=== PATIENT | male | born 1965 | race Caucasian/White ===

== ENCOUNTER 2018-03-28 10:37 | Inpatient (IN) | payer OTHER, SELFPAY ==
[2018-03-28] VITALS (16 sets, daily range): BP systolic 129–160; BP diastolic 64–87; PULSE 73–94; RESP 16–18; TEMP 36–37.2; O2SAT 94–99; BMI 28.0
--- NOTE | 2018-03-28 | DI.MRI.S_ITS ---
PROCEDURE: MR CERVICAL SPINE WO CON INDICATIONS: Trauma with cervical spine pain and tenderness TECHNIQUE: Noncontrast sagittal T1 spin echo and T2 fast spin echo, sagittal STIR, foraminal oblique sagittal T2 fast spin echo, and axial gradient echo or T2 fast spin echo through the cervical spine. COMPARISON: [facility], CT, CT CERVICAL SPINE WO CON, 03/28/2018, 10:40. FINDINGS: Image quality: This examination is limited by involuntary motion artifact. Alignment and Curvature: There is mild retrolisthesis seen at C5-C6 and C6-C7. Bone Marrow: Marrow demonstrates normal overall signal. Spinal Cord: Visualized spinal cord has normal size and signal. No cerebellar tonsillar herniation. Paraspinous Soft Tissues: No paravertebral masses. Prevertebral soft tissues are normal in thickness. In this patient with this given history, scrutiny is given to the soft tissues and the paraspinous ligaments. There is mild edema seen involving the soft tissues adjacent to the spinous processes at C6 and C7. C2-C3: The disc height is relatively well-preserved. A mild degree of generalized disc osteophyte complex is seen. Moderate facet joint hypertrophy is seen. Moderate bilateral neural foraminal narrowing is seen. Moderate central canal narrowing is seen. C3-C4: Mild loss of disc height is seen. Loss of disc signal is seen. Moderate generalized disc osteophyte complex is seen. Moderate facet joint hypertrophy is seen. There is moderate to severe bilateral neural foraminal narrowing seen, right worse than left. At least moderate central canal narrowing is seen, as on series 4 image 18. C4-C5: The disc height is relatively well-preserved. Moderate generalized disc osteophyte complex is seen. Moderate facet joint hypertrophy is seen. Moderate to severe bilateral neural foraminal narrowing is seen, left worse than right. Moderate central canal narrowing is seen, with associated mass effect upon the ventral spinal cord. C5-C6: Moderate loss of disc height is seen. Loss of disc signal is seen. Moderate disc osteophyte complex is seen. Uncovertebral joint hypertrophy is seen at this level. Mild to moderate facet hypertrophy is seen. There is moderate to severe bilateral neural foraminal narrowing seen, left worse than right. Moderate to severe central canal narrowing is seen, with mild mass effect upon the ventral spinal cord. C6-C7: Moderate loss of disc height is seen. Loss of disc signal is seen. Moderate to prominent disc osteophyte complex is seen. Uncovertebral joint hypertrophy is seen at this level. There is moderate to severe bilateral neural foraminal narrowing seen. Moderate to severe central canal narrowing is seen, with associated mass effect upon the ventral spinal cord, as on series 4 image 31. C7-T1: The disc height is relatively well-preserved. Moderate generalized disc osteophyte complex is seen. Moderate facet joint hypertrophy is seen. There is at least moderate bilateral neural foraminal narrowing seen. Mild to moderate central canal narrowing is seen. IMPRESSION: Mild soft tissue edema is seen adjacent to the spinous processes at C6 and C7 levels. In this patient with this given history, concern is raised for ligamentous injury. Multiple levels of the underlying degenerative change are seen, which are most prominent at the C6-C7 level. Dictated by: Cuauhtemoc Vasquez M.D. on 03/28/2018 at 15:42 Approved by: Cuauhtemoc Vasquez M.D. on 03/28/2018 at 15:49
--- NOTE | 2018-03-28 | DI.RAD.S_ITS ---
PROCEDURE: XR CHEST 1V INDICATIONS: PAIN FROM FALL TECHNIQUE: One view of the chest was acquired. COMPARISON: None. FINDINGS: Surgical changes and devices: None. Lungs and pleura: No pleural effusions or pneumothorax. Lungs are clear. Mediastinum: Mediastinal contours appear normal. Heart size is normal. Bones and chest wall: No suspicious bony lesions. Overlying soft tissues appear unremarkable. Widening of the right acromioclavicular joint which could be postsurgical or posttraumatic. Old left clavicle fracture which is healed in deformity. IMPRESSION: No acute cardiopulmonary disease process. Dictated by: Marielena Root MD, PhD on 03/28/2018 at 10:57 Approved by: Marielena Root MD, PhD on 03/28/2018 at 10:58
--- NOTE | 2018-03-28 | DI.CT.S_ITS ---
PROCEDURE: CT CERVICAL SPINE WO CON INDICATIONS: PAIN FROM FALL TECHNIQUE: Noncontrast 3 mm thick sections acquired from the skull base to the T4 level. Sagittal and coronal reformats were then constructed. For radiation dose reduction, the following was used: automated exposure control, adjustment of mA and/or kV according to patient size. COMPARISON: None. FINDINGS: Image quality: Excellent. Bones: No fractures or dislocations. Visualized superior ribs are intact. There is moderately severe to severe degenerative disc disease and facet osteoarthritis at C5-6 and C6-7, to the degree that significant spinal and foraminal stenosis is associated. Soft tissues: Prevertebral soft tissues are normal in thickness. No paravertebral hematomas. No apical pneumothoraces. IMPRESSION: Moderately severe to severe degenerative disc disease and facet osteoarthritis over the lower half of the cervical spine but without fracture found or traumatic subluxation identified. Dictated by: Juan Jose Nair M.D. on 03/28/2018 at 11:16 Approved by: Juan Jose Nair M.D. on 03/28/2018 at 11:18
--- NOTE | 2018-03-28 | DI.CT.S_ITS ---
PROCEDURE: CT HEAD/BRAIN WO CON INDICATIONS: PAIN FROM FALL TECHNIQUE: Noncontrast 4.5 mm thick angled axial sections acquired from the foramen magnum to the vertex, with coronal and sagittal reformats. For radiation dose reduction, the following was used: automated exposure control, adjustment of mA and/or kV according to patient size. COMPARISON: None. FINDINGS: Image quality: Excellent. CSF spaces: Basal cisterns are patent. No extra-axial fluid collections. Ventricles are normal in size and shape. Brain: No midline shift. No intracranial masses or hemorrhage. Ann-white matter interface is normal. Atherosclerotic calcifications noted in the V4 segments of the vertebral arteries. Skull and face: Calvarium and visualized facial bones are intact, without suspicious lesions. Right posterior parietal scalp laceration noted. Sinuses: Mucosal thickening noted in the maxillary sinuses bilaterally and the ethmoid air cells bilaterally. The mastoids are clear. IMPRESSION: 1. No acute intracranial disease process. 2. No intracranial hemorrhage. 3. No fracture. 4. Large posterior right parietal scalp laceration. Dictated by: Marielena Root MD, PhD on 03/28/2018 at 11:08 Approved by: Marielena Root MD, PhD on 03/28/2018 at 11:11
--- NOTE | 2018-03-28 | DI.RAD.S_ITS ---
PROCEDURE: XR PELVIS 1-2V INDICATIONS: FALL FROM 14 FEET WITH LACERATIONS AND PAIN THROUGH SPINE TECHNIQUE: 1 view(s) of the pelvis acquired. COMPARISON: None. FINDINGS: Bones: No fractures or dislocations. No suspicious bony lesions. Soft tissues: Visualized bowel gas pattern is normal. No suspicious soft tissue calcifications. IMPRESSION: No fracture. No osseous lesion. If symptoms and/or clinical suspicion for pathology persists, further assessment with repeat radiographs (7-10 days) or advanced imaging (e.g. CT, MRI or bone scan) may be helpful. Dictated by: Marielena Root MD, PhD on 03/28/2018 at 10:56 Approved by: Marielena Root MD, PhD on 03/28/2018 at 10:57
--- NOTE | 2018-03-28 | DI.CT.S_ITS ---
PROCEDURE: CT CHEST ABD PEL W CON INDICATIONS: PAIN FROM FALL TECHNIQUE: After the administration of intravenous contrast, 5 mm thick sections acquired from the lung apices to the symphysis. 2.5 mm thick coronal and sagittal reformats were acquired. Additional 7 mm thick coronal maximum intensity projection (MIP) reformats acquired through the lungs. Optional 10-minute delayed imaging may be performed from the kidneys to the bladder. For radiation dose reduction, the following was used: automated exposure control, adjustment of mA and/or kV according to patient size. COMPARISON: None. FINDINGS: Image quality: Excellent. CHEST: Lungs: No pulmonary contusions or lacerations. No acute airspace opacities. No pneumothorax or hemothorax. Central and peripheral airways appear patent and normal in caliber. Mediastinum: No mediastinal hematomas. Heart size is normal. No pericardial effusion. Thoracic aorta and pulmonary arteries demonstrate normal size and enhancement. No mediastinal or hilar adenopathy. Esophagus is normal in caliber. No hiatal hernia. Chest wall: No rib fractures. No subcutaneous emphysema. No axillary or supraclavicular adenopathy. Thyroid gland appears normal where well visualized. ABDOMEN: Solid organs: Liver is normal in size and enhancement, without lacerations. Gallbladder appears normal. Biliary system is non-dilated. Pancreas enhances normally, without transection. Spleen is normal in size and enhancement, without lacerations. No adrenal hematomas. Both kidneys enhance normally, without hydronephrosis or lacerations. Peritoneum and bowel: No free fluid or air. Unenhanced bowel loops demonstrate normal wall thickness and caliber. Nodes and vessels: No retroperitoneal or mesenteric adenopathy. Aorta and inferior vena cava are normal in size and enhancement. Miscellaneous: No ventral hernias. PELVIS: Genitourinary: Bladder wall thickness is normal. Miscellaneous: No inguinal hernias or adenopathy. Bones: Pelvic ring and hip joints appear intact. No thoracic vertebral compression fractures are found but there is what appears to be an acute 19% anterior height reduction wedge compression fracture of L1, when compared to the level immediately below.. IMPRESSION: No visceral trauma is seen. Please correlate for presence of focal tenderness at the L1 region of the thoracolumbar junction. A 19% anterior height reduction is noted at the L1 vertebral body, presumed to be acute in the setting of significant trauma. Chronicity, however, is more accurately established by MR scanning and could be obtained if clinically warranted. Dictated by: Juan Jose Nair M.D. on 03/28/2018 at 11:23 Approved by: Juan Jose Nair M.D. on 03/28/2018 at 11:26
--- NOTE | 2018-03-28 | DI.MRI.S_ITS ---
PROCEDURE: MR LUMBAR SPINE WO CON INDICATIONS: Compression fracture of lumbar spine TECHNIQUE: Noncontrast sagittal T1 spin echo and T2 fast echo, sagittal STIR, axial T1 and T2 fast spin echo through the lumbar spine. In cases with scoliosis, additional coronal T2 fast spin echo may be performed. COMPARISON: [facility], MR, MR CERVICAL SPINE WO CON, 03/28/2018, 15:36. [facility], CT, CT CHEST ABD PEL W CON, 03/28/2018, 10:40. FINDINGS: Image quality: Diagnostic, with note made of motion artifact. Alignment and Curvature: There is normal bony alignment. Bone Marrow: Marrow is of normal overall signal. There is a band of increased T2-weighted/STIR signal, with decreased T1 weighted signal across the superior/mid aspect of the L1 vertebral body. There is 15-20% loss of height anteriorly at this level. No posterior displacement fracture fragments can be seen. No additional foci of abnormal bone marrow signal are seen. Spinal Cord: Conus medullaris terminates at the L1 level. Visualized cord demonstrates normal signal and size. Paraspinous Soft Tissues: No paravertebral masses. T12-L1: Mild to moderate loss of disc height and disc signal are seen. Mild to moderate disc bulge is seen. There is mild bilateral neural foraminal narrowing seen. Mild to moderate central canal narrowing is seen. L1-L2: The disc height is well-preserved. Loss of disc signal is seen at this level. Mild generalized disc bulge is seen. There is mild to moderate left-sided and minimal right-sided neural foraminal narrowing seen. Mild to moderate central canal narrowing is seen. L2-L3: The disc height and disk signal are well-preserved. Mild to moderate disc bulge is seen, which is eccentric to the right. There is mild to moderate right-sided and mild left-sided neural foraminal narrowing seen. No significant central canal narrowing is seen. L3-L4: [id number] loss of disc height and disc signal can be seen. Along the posterior aspect of the annulus fibrosis, there is a focal annular fissure seen, as on series 2 image 9. Mild to moderate facet hypertrophy is seen. There is at least moderate bilateral neural foraminal narrowing seen. There is a degree of impingement seen upon the exiting nerve roots. Mild to moderate central canal narrowing is seen. L4-L5: The disc height and disk signal are well-preserved. Mild generalized disc bulge is seen. Moderate facet hypertrophy is seen. There is moderate to severe bilateral neural foraminal narrowing seen. There is a degree of impingement seen upon the exiting nerve roots. Mild central canal narrowing is seen. L5-S1: The disc height is well-preserved. Loss of disc signal is seen at this level. Mild to moderate disc bulge is seen. Mild to moderate facet hypertrophy is seen. Along the posterior aspect of the annulus fibrosis, an annular fissure can be seen. There is moderate to severe left-sided neural foraminal narrowing, with associated impingement upon the exiting left L5 nerve root. There is moderate right-sided neural foraminal narrowing seen. Mild central canal narrowing is seen. IMPRESSION: Acute fracture of the L1 vertebral body. Multiple levels of degenerative change are seen, including several sites of nerve root impingement. Annular fissures are seen posteriorly at the L3-L4 and L5-S1 levels. Dictated by: Cuauhtemoc Vasquez M.D. on 03/28/2018 at 15:49 Approved by: Cuauhtemoc Vasquez M.D. on 03/28/2018 at 15:57
--- NOTE | 2018-03-28 10:47 | ED_ITS ---
HPI - Trauma General Chief Complaint: Trauma Stated Complaint: Mob Trauma Time Seen by Provider: 03/28/18 10:46 Source: patient and EMS Mode of arrival: EMS Limitations: no limitations History of Present Illness HPI narrative: Otherwise healthy 53-year-old male brought in by EMS after reports that the patient falling off a 14 ft ladder. EMS reports that the patient did land on his head. Unsure if this was witnessed or not. No reports of loss of consciousness. Patient did arrive in a cervical collar and on a backboard. No interventions or medications given by EMS prior to arrival. Patient was able to move all 4 extremities prior to arrival. Upon arrival patient is complaining of left-sided chest pain and back pain. Also reports of a possible cut to the his head with a bandage over this area. Related Data Home Medications Medication Instructions Recorded Confirmed No Known Home Medications 03/28/18 03/28/18 Allergies Allergy/AdvReac Type Severity Reaction Status Date / Time No Known Drug Allergies Allergy Verified 03/28/18 11:14 Review of Systems Review of Systems All systems reviewed & are unremarkable except as noted in HPI and below Constitutional Denies fatigue, Denies frequent falls and Reports headache(s) Eyes Denies blurry vision and Denies diplopia ENT Ears, Nose, Mouth, and Throat: Denies dizziness, Denies otalgia, Denies facial pain, Reports headache(s), Denies disequilibrium and Denies throat swelling Cardiovascular Reports chest pain (Left-sided chest pain), Denies diaphoresis, Denies syncope, Denies palpitations and Denies dyspnea Respiratory Denies cough and Denies dyspnea Gastrointestinal Gastrointestinal: Denies abdominal pain, Denies nausea and Denies vomiting Musculoskeletal Reports back pain, Denies deformity, Denies numbness and Denies tingling Integumentary/Breasts Comments: Cut the back of his head Neurologic Denies confusion, Denies dizziness, Denies syncope, Denies frequent falls, Reports headache(s), Denies numbness, Denies convulsions, Denies tingling and Denies disequilibrium Psychiatric Denies confusion Endocrine Denies fatigue and Denies palpitations Hematologic/Lymphatic Denies easy bleeding and Denies easy bruising Allergic/Immunologic Denies throat swelling [facility] Medical History Hypertension (Acute) Surgical History No pertinent past surgical history (Acute) Family History: Reviewed 03/28/18 by Kalina Costa MD Social History household members: children Smoking Status: Current every day smoker alcohol intake: former Exam Initial Vital Signs Initial Vital Signs: Vital Signs Pulse Rate 73 03/28/18 11:18 Respiratory Rate 16 03/28/18 11:18 Blood Pressure 149/87 H 03/28/18 11:18 Pulse Oximetry 97 03/28/18 11:18 Const General: cooperative, well developed, well groomed and No acute distress Orientation: alert, awake and oriented x3 HENMT Head: other (4 cm cut to the right parietal aspect of his head) Ears: TM's normal bilaterally Nose: external nose normal Face and sinus: normal facial exam, sinuses nontender and face symmetric Mouth: oral mucosae normal Teeth and gingiva: dentition normal Throat: posterior oropharynx normal Eyes Pupils: PERRL EOM: EOM intact bilaterally Neck Other: In cervical collar Chest Chest: normal inspection of the chest, normal palpation of entire chest wall and No crepitus Resp Effort & Inspection: normal respiratory effort Auscultation: clear to auscultation bilaterally Cardio Rate: regular rate Rhythm: regular rhythm Pulses: radial pulses present GI Inspection: non-distended Palpation: soft, No firm and No tender Other: Normal external male genitalia Back/Spine/Pelvis Back: back tenderness and No crepitance Cervical Spine: collar present Thoracic/Lumbar Spine: No thoraco-lumbar spasm, thoracic spinal tenderness and lumbar spinal tenderness Skin Other: 4 cm laceration to the right parietal aspect of his scalp Neuro General: alert, awake and oriented x3 Cranial Nerves: CN's II-XI intact bilaterally Cognition: normal cognition Speech: speech normal Other: Patient moves all 4 extremities to command Extrem General: normal to inspection and capillary refill normal Right upper extremity: normal to inspection Left upper extremity: normal to inspection Right lower extremity: normal to inspection Left lower extremity: normal to inspection Psych Appearance: grossly normal and well kempt Procedures FAST Exam FAST Exam 1: Fluid in Morison's pouch: No Fluid in Splenorenal Junction: No Fluid around bladder, Transverse view: No Fluid around bladder, Sagittal view: No Fluid in Pericardial Sac: No Gross Wall Motion Abnormality: No Study normal for this patient: Yes Images saved for further review: No Laceration Repair Laceration 1: Site: scalp Side (If applicable): right Size (cm): 4 Description: linear and irregular Depth: simple, single layer Local Anesthetic: lidocaine 1% Amount of anesthesia used (mL): 6 Pre-repair: wound explored and irrigated extensively Skin layer closed with: other (Fanny 10) Scores GCS Eugenio coma scale eye opening: Spontaneous [place] coma scale verbal response: Orientated [place] coma scale motor response: Obey commands Eugenio coma scale total score: 15 Course Orders Ordered: ED Orders 03/28/18 11:51 Consult to General Surgery Routine Diazepam (Valium) 5 mg IV Q6HR PRN PRN Reason: Anxiety Sodium Chloride (Normal Saline 0.9%) 1,000 mls @ 125 mls/hr IV CONT FADUMO Last Admin: 03/28/18 13:29 Dose: 125 mls/hr HYDROMORPHONE STEAM BLOCKER (Dilaudid 6 Mg/30 Ml) 6 mg in 30 mls @ 0 mls/hr IV Q8HR FADUMO Morphine Sulfate (Morphine) 4 mg IV Q4HR PRN PRN Reason: Pain, Mild (1-3) Last Admin: 03/28/18 15:32 Dose: 4 mg Naloxone HCl (Narcan) 0.2 mg IV Q2MIN PRN; Protocol PRN Reason: Opiate Reversal Ondansetron HCl (Zofran) 4 mg IV Q4HR PRN PRN Reason: Nausea And Vomiting Discontinued Medications Diphtheria/Tetanus/Acell Pertussis (Adacel) 0.5 ml IM .ONCE ONE Stop: 03/28/18 13:23 Last Admin: 03/28/18 13:29 Dose: 0.5 ml Hydromorphone HCl (Dilaudid) 1 mg IV NOW ONE Stop: 03/28/18 11:21 Last Admin: 03/28/18 11:27 Dose: 1 mg Hydromorphone HCl (Dilaudid) 1 mg IV NOW ONE Stop: 03/28/18 12:10 Last Admin: 03/28/18 12:10 Dose: 1 mg Hydromorphone HCl (Dilaudid) 1 mg IV NOW ONE Stop: 03/28/18 19:00 Last Admin: 03/28/18 19:41 Dose: Hydromorphone HCl (Dilaudid) 1 mg IV NOW ONE Stop: 03/28/18 19:46 Last Admin: 03/28/18 19:41 Dose: 1 mg Sodium Chloride (Normal Saline 0.9%) 1,000 mls @ 1,000 mls/hr IV BOLUS ONE Stop: 03/28/18 11:46 Last Infusion: 03/28/18 12:35 Dose: 0 mls/hr Infusion: 03/28/18 11:47 Dose: 0 mls/hr Admin: 03/28/18 10:48 Dose: 1,000 mls/hr Morphine Sulfate (Morphine) 4 mg IV NOW ONE Stop: 03/28/18 10:48 Last Admin: 03/28/18 10:48 Dose: 4 mg Morphine Sulfate (Morphine) 4 mg IV NOW ONE Stop: 03/28/18 11:06 Last Admin: 03/28/18 11:04 Dose: 4 mg Morphine Sulfate (Morphine) 4 mg IV Q4HR PRN PRN Reason: Pain, Mild (1-3) Ondansetron HCl (Zofran) 4 mg IV NOW ONE Stop: 03/28/18 10:48 Last Admin: 03/28/18 10:48 Dose: 4 mg Vital Signs - 8 hr 03/28/18 13:00 03/28/18 13:21 03/28/18 13:37 Temperature Pulse Rate 75 85 78 Respiratory Rate 16 Blood Pressure 144/75 H Blood Pressure [Left Arm] 144/75 H 145/81 H Pulse Oximetry 99 97 03/28/18 13:50 03/28/18 16:21 03/28/18 19:33 Temperature 98.0 F 96.8 F L 98.9 F Pulse Rate 76 78 94 H Respiratory Rate 18 Blood Pressure 150/79 H 131/80 142/74 H Blood Pressure [Left Arm] Pulse Oximetry 96 96 94 MDM - Trauma Lab Data Attestation: I reviewed the patient's lab results. Result diagrams: 03/28/18 10:53 03/28/18 10:53 Lab Results 03/28/18 03/28/18 03/28/18 Range/Units 10:53 10:53 10:53 WBC 13.8 H (4.5-11.0) X10^3/uL RBC 5.41 (4.5-5.9) X10^6/uL Hgb 17.0 (13.5-17.5) g/dL Hct 49.6 (41-53) % MCV 91.7 (80-100) fL MCH 31.4 (26-34) PG MCHC 34.2 (30-36) % RDW 13.4 (11.6-14.8) % Plt Count 269 (150-400) X10^3/uL Neut % (Auto) 60.3 (50-75) % Lymph % (Auto) 24.9 L (25-40) % [place] % (Auto) 9.8 (3-14) % Eos % (Auto) 3.8 (2-4) % Baso % (Auto) 1.2 (0-2) % Neut # (Auto) 8300 H (3879-9074) /uL PT 12.4 (10.1-12.7) SECONDS INR 1.1 (0.9-1.3) APTT 25 L (26.4-36.2) SECONDS Sodium 140 (137-145) mmol/L Potassium 3.6 (3.4-5.1) mmol/L Chloride 102 (98-107) mmol/L Carbon Dioxide 28 (22-32) mmol/L BUN 23 H (9-20) mg/dL Creatinine 0.80 (0.66-1.25) mg/dL Estimated GFR > 60.0 (>60) mL/min BUN/Creatinine Ratio 28.8 H (6-22) Glucose 105 H (70-100) mg/dL Calcium 8.8 (8.4-10.2) mg/dL Blood Type Antibody Screen 03/28/18 Range/Units 10:53 WBC (4.5-11.0) X10^3/uL RBC (4.5-5.9) X10^6/uL Hgb (13.5-17.5) g/dL Hct (41-53) % MCV (80-100) fL MCH (26-34) PG MCHC (30-36) % RDW (11.6-14.8) % Plt Count (150-400) X10^3/uL Neut % (Auto) (50-75) % Lymph % (Auto) (25-40) % [place] % (Auto) (3-14) % Eos % (Auto) (2-4) % Baso % (Auto) (0-2) % Neut # (Auto) (5824-4745) /uL PT (10.1-12.7) SECONDS INR (0.9-1.3) APTT (26.4-36.2) SECONDS Sodium (137-145) mmol/L Potassium (3.4-5.1) mmol/L Chloride (98-107) mmol/L Carbon Dioxide (22-32) mmol/L BUN (9-20) mg/dL Creatinine (0.66-1.25) mg/dL Estimated GFR (>60) mL/min BUN/Creatinine Ratio (6-22) Glucose (70-100) mg/dL Calcium (8.4-10.2) mg/dL Blood Type A Negative Antibody Screen Negative Imaging Data Chest x-ray: Radiologist's impression: OCEDURE: XR CHEST 1V INDICATIONS: PAIN FROM FALL TECHNIQUE: One view of the chest was acquired. COMPARISON: None. FINDINGS: Surgical changes and devices: None. Lungs and pleura: No pleural effusions or pneumothorax. Lungs are clear. Mediastinum: Mediastinal contours appear normal. Heart size is normal. Bones and chest wall: No suspicious bony lesions. Overlying soft tissues appear unremarkable. Widening of the right acromioclavicular joint which could be postsurgical or posttraumatic. Old left clavicle fracture which is healed in deformity. IMPRESSION: No acute cardiopulmonary disease process. Dictated by: Marielena Root MD, PhD on 03/28/2018 at 10:57 Approved by: Marielena Root MD, PhD on 03/28/2018 at 10:5 AP pelvis x-ray: Radiologist's impression: [place] [address] XRay Report Signed Patient: Andres Antonio#: [id number] : 1965Acct:[id number] Age/Sex: 53 / MDate of Service: 03/28/18 Loc: ED Accession Number: [id number] Procedure: XR pelvis 1-2V Ordering Provider: Harshil العراقي D.O. PROCEDURE: XR PELVIS 1-2V INDICATIONS: FALL FROM 14 FEET WITH LACERATIONS AND PAIN THROUGH SPINE TECHNIQUE: 1 view(s) of the pelvis acquired. COMPARISON: None. FINDINGS: Bones: No fractures or dislocations. No suspicious bony lesions. Soft tissues: Visualized bowel gas pattern is normal. No suspicious soft tissue calcifications. IMPRESSION: No fracture. No osseous lesion. If symptoms and/or clinical suspicion for pathology persists, further assessment with repeat radiographs (7-10 days) or advanced imaging (e.g. CT, MRI or bone scan) may be helpful. Dictated by: Marielena Root MD, PhD on 03/28/2018 at 10:56 Approved by: Marielena Root MD, PhD on 03/28/2018 at 10:57 CT scan - head: Radiologist's impression: [place] [address] CT Scan Report Signed Patient: Andres Antonio#: [id number] : 1965Acct:[id number] Age/Sex: 53 / MDate of Service: 03/28/18 Loc: ED Accession Number: [id number] Procedure: CT head/brain wo con Ordering Provider: Harshil العراقي D.O. PROCEDURE: CT HEAD/BRAIN WO CON INDICATIONS: PAIN FROM FALL TECHNIQUE: Noncontrast 4.5 mm thick angled axial sections acquired from the foramen magnum to the vertex, with coronal and sagittal reformats. For radiation dose reduction, the following was used: automated exposure control, adjustment of mA and/or kV according to patient size. COMPARISON: None. FINDINGS: Image quality: Excellent. CSF spaces: Basal cisterns are patent. No extra-axial fluid collections. Ventricles are normal in size and shape. Brain: No midline shift. No intracranial masses or hemorrhage. Ann-white matter interface is normal. Atherosclerotic calcifications noted in the V4 segments of the vertebral arteries. Skull and face: Calvarium and visualized facial bones are intact, without suspicious lesions. Right posterior parietal scalp laceration noted. Sinuses: Mucosal thickening noted in the maxillary sinuses bilaterally and the ethmoid air cells bilaterally. The mastoids are clear. IMPRESSION: 1. No acute intracranial disease process. 2. No intracranial hemorrhage. 3. No fracture. 4. Large posterior right parietal scalp laceration. Dictated by: Marielena Root MD, PhD on 03/28/2018 at [address]: Radiologist's impression: [address] [address] [address] Scan Report Signed Patient: Andres Antonio#: [id number] : 1965Acct:[id number] Age/Sex: 53 / MDate of Service: 03/28/18 Loc: ED Accession Number: [id number] Procedure: CT cervical spine wo con Ordering Provider: Harshil العراقي D.O. PROCEDURE: CT CERVICAL SPINE WO CON INDICATIONS: PAIN FROM FALL TECHNIQUE: Noncontrast 3 mm thick sections acquired from the skull base to the T4 level. Sagittal and coronal reformats were then constructed. For radiation dose reduction, the following was used: automated exposure control, adjustment of mA and/or kV according to patient size. COMPARISON: None. FINDINGS: Image quality: Excellent. Bones: No fractures or dislocations. Visualized superior ribs are intact. There is moderately severe to severe degenerative disc disease and facet osteoarthritis at C5-6 and C6-7, to the degree that significant spinal and foraminal stenosis is associated. Soft tissues: Prevertebral soft tissues are normal in thickness. No paravertebral hematomas. No apical pneumothoraces. IMPRESSION: Moderately severe to severe degenerative disc disease and facet osteoarthritis over the lower half of the cervical spine but without fracture found or traumatic subluxation identified. Dictated by: Juan Jose Nair M.D. on 03/28/2018 at 11:16 Approved by: Juan Jose Nair M.D. on 03/28/2018 at 11:18 CT chest and pelvis: Radiologist's impression: PROCEDURE: CT CHEST ABD PEL W CON INDICATIONS: PAIN FROM FALL TECHNIQUE: After the administration of intravenous contrast, 5 mm thick sections acquired from the lung apices to the symphysis. 2.5 mm thick coronal and sagittal reformats were acquired. Additional 7 mm thick coronal maximum intensity projection (MIP) reformats acquired through the lungs. Optional 10-minute delayed imaging may be performed from the kidneys to the bladder. For radiation dose reduction, the following was used: automated exposure control, adjustment of mA and/or kV according to patient size. COMPARISON: None. FINDINGS: Image quality: Excellent. CHEST: Lungs: No pulmonary contusions or lacerations. No acute airspace opacities. No pneumothorax or hemothorax. Central and peripheral airways appear patent and normal in caliber. Mediastinum: No mediastinal hematomas. Heart size is normal. No pericardial effusion. Thoracic aorta and pulmonary arteries demonstrate normal size and enhancement. No mediastinal or hilar adenopathy. Esophagus is normal in caliber. No hiatal hernia. Chest wall: No rib fractures. No subcutaneous emphysema. No axillary or supraclavicular adenopathy. Thyroid gland appears normal where well visualized. ABDOMEN: Solid organs: Liver is normal in size and enhancement, without lacerations. Gallbladder appears normal. Biliary system is non-dilated. Pancreas enhances normally, without transection. Spleen is normal in size and enhancement, without lacerations. No adrenal hematomas. Both kidneys enhance normally, without hydronephrosis or lacerations. Peritoneum and bowel: No free fluid or air. Unenhanced bowel loops demonstrate normal wall thickness and caliber. Nodes and vessels: No retroperitoneal or mesenteric adenopathy. Aorta and inferior vena cava are normal in size and enhancement. Miscellaneous: No ventral hernias. PELVIS: Genitourinary: Bladder wall thickness is normal. Miscellaneous: No inguinal hernias or adenopathy. Bones: Pelvic ring and hip joints appear intact. No thoracic vertebral compression fractures are found but there is what appears to be an acute 19% anterior height reduction wedge compression fracture of L1, when compared to the level immediately below.. IMPRESSION: No visceral trauma is seen. Please correlate for presence of focal tenderness at the L1 region of the thoracolumbar junction. A 19% anterior height reduction is noted at the L1 vertebral body, presumed to be acute in the setting of significant trauma. Chronicity, however, is more accurately established by MR scanning and could be obtained if clinically warranted. Dictated by: Juan Jose Nair M.D. on 03/28/2018 at 11:23 Approved by: Juan Jose Nair M.D. on 03/28/2018 at 11:26 [facility] Narrative Medical decision making narrative: Patient is alert and oriented x3. The scalp laceration was closed as described above. CT scan shows no gross abnormalities. Cervical collar was removed. Patient described no posterior cervical tenderness. He was able to turn his head to the left in order for me to evaluate and close his scalp laceration. Patient was describing left-sided chest tenderness. He was splinting secondary to this. Was given pain medications. No fractures noted on the chest x-ray. No pneumothorax. Patient also with an L1 compression fracture. He is tender over this area. He has got normal neurologic function in his lower extremities. I do suspect that this is L1 compression fracture secondary to his fall today. Given his compression fracture, his significant left sided chest tenderness I feel that admission to the hospital for observation and pain control is warranted to prevent splinting and possible complications of his left lung secondary to this. He also needs evaluated by physical therapy for his L1 compression fracture. I discussed the case with Dr. costa with General surgery who accepts the patient in transfer. I did discuss the admission with the patient. He expressed understanding and agreement. Discharge Plan Departure Patient Disposition: Admitted as Observation Clinical Impression: Closed compression fracture of L1 lumbar vertebra, Chest wall contusion, Laceration of scalp, CHI (closed head injury), Fall Discharge Date/Time: 03/28/18 13:45 Interventions: ED Discharge Assessment Last Done: 03/28/18 13:21 Admit Date/Time: 03/28/18 12:16 Admit Provider: Kalina Costa
[2018-03-28] MEDS: MORPHINE 4 MG/ML INJ IV ×3 (10:48→15:32)
[2018-03-28] MEDS: SODIUM CHLORIDE 0.9% 1,000 ML 1000 ML IV (10:48)
[2018-03-28] MEDS: ONDANSETRON 4 MG/2 ML INJ IV (10:48)
[2018-03-28 11:04] LABS: Add Manual Diff / Slide Review NO; Basophils Percent Auto 1.2 % (0-2); Eosinophils Percent Auto 3.8 % (2-4); Hematocrit 49.6 % (41-53); Lymphocytes Percent Auto 24.9 % (25-40); Mean Corpuscular HGB Conc 34.2 % (30-36); Mean Corpuscular Hemoglobin 31.4 PG (26-34); Mean Corpuscular Volume 91.7 fL (80-100); Monocytes Percent Auto 9.8 % (3-14); Neutrophils Absolute Auto 8300 /uL (3000-5900); Neutrophils Percent Auto 60.3 % (50-75); Platelet Count 269 X10^3/uL (150-400); Red Blood Cell Count 5.41 X10^6/uL (4.5-5.9); Red Cell Distribution Width 13.4 % (11.6-14.8); White Blood Cell Count 13.8 X10^3/uL (4.5-11.0)
[2018-03-28 11:07] LABS: INR 1.1 (0.9-1.3); Prothrombin Time 12.4 SECONDS (10.1-12.7)
[2018-03-28 11:10] LABS: PTT Partial Thromboplastin Tim 25 SECONDS (26.4-36.2)
[2018-03-28 11:14] LABS: BUN Creatinine Ratio 28.8 (6-22); Blood Urea Nitrogen 23 mg/dL (9-20); Calcium 8.8 mg/dL (8.4-10.2); Carbon Dioxide 28 mmol/L (22-32); Chloride 102 mmol/L (98-107); Estimated Glomerular Filt Rate > 60.0 mL/min (>60); Glucose 105 mg/dL (70-100); HEMOLYSIS 26 (0-50); Potassium 3.6 mmol/L (3.4-5.1); Sodium 140 mmol/L (137-145)
--- NOTE | 2018-03-28 11:20 | PC.NURSE ---
pt remain alert and awake, c/o left posterior rib pain, hurts with movement, denies nausea. no relief from morphine. dr montez aware.
[2018-03-28] MEDS: HYDROMORPHONE 1 MG INJ IV ×3 (11:27→19:41)
--- NOTE | 2018-03-28 11:37 | PC.NURSE ---
skin warm dry pink, eyes closed, with symmetrical respirations. remain with cervical collar at this time, moving all extremeties.
--- NOTE | 2018-03-28 11:41 | PC.NURSE ---
pt recalls landing on the ra[place]ualSun ties. obtained lac right side of head (scalf lac)
--- NOTE | 2018-03-28 11:43 | PC.NURSE ---
while pt in ct, pt reports, left rib pain, hurts to take deep breath or move, sat 91% RA, 2lpm via nc applied. increased to 97%. skin warm dry pink.
--- NOTE | 2018-03-28 12:02 | PC.NURSE ---
irrigated with saline with hibiclens, tolerated well.
--- NOTE | 2018-03-28 12:18 | PC.NURSE ---
scalf stapled by dr montez, tolerated. well.
--- NOTE | 2018-03-28 12:19 | PC.NURSE ---
set of keys, phone, black wallet , in personal belonging with pt. pair of boots, pair of gloves, underwear,pants,shirt has been cut due to trauma.
--- NOTE | 2018-03-28 12:20 | PC.NURSE ---
plan transfer to telemetry, admit by dr costa. fall, severe left rib pain, with shallow breathing, L1 compression fx. pt denies numbness or tingling in lower ext.
--- NOTE | 2018-03-28 13:01 | PC.NURSE ---
calling for report, rn to call back.
[2018-03-28] MEDS: TET,DIPH,PERTUSS(ACELL),VAC/PF 0.5 ML SYRINGE IM (13:29)
[2018-03-28] MEDS: SODIUM CHLORIDE 0.9% 1,000 ML 125 ML IV (13:29)
--- NOTE | 2018-03-28 15:20 | PM.HP.1 ---
History of Present Illness Date Patient Seen: 03/28/18 Time Patient Seen: 15:20 Chief complaint: Mob Trauma Narrative: 53 year old gentleman who was working on a roof this afternoon when he suffered a fall. He reports he remembers taking a step and then woke up on the ground. He was told he lost consciousness at the scene. He is complaining of neck, back and chest pain. He denies any numbness or tingling in his hands or feet. He is also complaining of some pain in his head. He reports that his chest pain is primarily posterior. He denies any difficulty breathing. He denies any pain in his extremities. Patient History Family & Social History Family History: Reviewed 03/28/18 by Kalina Frederick MD Social History: household members children Prior Living Arrangements House Safety & Behavioral: Feels Safe in Current Yes Environment Been Physically Hurt or No Threatened By a Person Suicidal Ideation Description None Suicide Plan Description No Plan Tobacco & Substance use: Tobacco type cigarettes Smoking Status Current every day smoker alcohol intake former alcohol intake frequency holiday/special occasion Substance Use Type does not use Meds Home Medications Medication Instructions Recorded Confirmed Type No Known Home Medications 03/28/18 03/28/18 History Allergies Allergy/AdvReac Type Severity Reaction Status Date / Time No Known Drug Allergies Allergy Verified 03/28/18 11:14 Review of Systems Constitutional Constitutional: Reports as per HPI, Reports headache(s) and Denies snoring ENT Ears, Nose, Mouth, and Throat: No as per HPI, No system reviewed; no additional complaints, except as documented, No abnormal hearing, No bleeding gums, No bad breath, No change in voice, No dental pain, No difficulty swallowing, No dizziness, No dry mouth, No ear discharge, No ear pain, No facial pain, Yes headache(s), No hearing loss, No hoarseness, No lip swelling, No nose bleed, No mouth lesions, No mouth pain, No nasal congestion, No nasal discharge, No nasal obstruction, No nasal trauma, No neck lump, Yes neck pain, No nose pain, No pain with swallowing, No poor balance, No post nasal drip, No ringing in the ears, No sinus pain, No sinus pressure, No sore throat, No throat swelling, No tongue swelling and No other Cardiovascular Cardiovascular: Denies as per HPI, Denies system reviewed; no additional complaints, except as documented, Denies bluish discoloration of hands/feet, Denies chest pain, Denies chest pain at rest, Denies chest pain with activity, Denies excessive sweating, Denies fainting, Denies fast heart rate, Denies foot swelling, Denies generalize swelling, Denies irregular heart rhythm, Denies leg pain with activity, Denies leg sores, Denies leg swelling, Denies lightheadedness, Denies radiating jaw, neck or arm pain, Denies rapid, pounding, or irregular heartbeat, Denies shortness of breath, Denies shortness of breath with activity, Denies shortness of breath when lying down, Denies shortness of breath causing sudden awakening, Denies slow heart rate and Denies other Respiratory Respiratory: Denies as per HPI, Denies system reviewed and no additional complaints, except as documented, Denies change in phlegm color, Denies chest congestion, Denies cough, Denies hemoptysis, Denies excessive phlegm production, Reports pain on inspiration, Denies pain with cough, Denies dyspnea, Denies dyspnea on exertion, Denies snoring, Denies stridor, Denies wheezing and Denies other Gastrointestinal Gastrointestinal: Denies as per HPI, Denies system reviewed and no additional complaints, except as documented, Denies abdominal pain, Denies belching, Denies melena, Denies bloating, Denies hematochezia, Denies change in bowel habits, Denies tenesmus, Denies change in stool character, Denies coffee ground emesis, Denies constipation, Denies cramping, Denies dysphagia, Denies excessive flatus, Denies early satiety, Denies heartburn, Denies fecal incontinence, Reports loose stools, Reports nausea, Denies odynophagia, Denies vomiting, Denies hematemesis and Denies other Genitourinary Genitourinary: Reports system reviewed and no additional complaints, except as documented Musculoskeletal Musculoskeletal: Denies as per HPI, Denies abnormal gait, Reports back pain, Denies myalgias, Denies atrophy, Denies deformity, Denies arthralgias, Denies joint swelling, Denies limited range of motion, Denies loss of height, Denies muscle cramps, Denies muscle weakness, Reports neck pain, Denies numbness, Denies radiating pain into limb, Denies stiffness, Denies tingling and Denies other Neurologic Neurologic: Denies abnormal hearing, Denies abnormal gait, Denies dizziness, Denies syncope, Reports headache(s), Denies numbness, Denies tingling and Denies disequilibrium Endocrine Endocrine: Denies palpitations Allergic/Immunologic Allergic/Immunologic: Denies lip swelling, Denies throat swelling, Denies tongue swelling and Denies wheezing Exam Vital Signs (past 8 hours): - 03/28/18 11:18 03/28/18 11:30 03/28/18 11:35 Temperature Pulse Rate 73 75 78 Respiratory Rate 16 18 Blood Pressure Blood Pressure [Left Arm] 149/87 H 149/79 H 145/81 H Pulse Oximetry 97 97 97 03/28/18 11:47 03/28/18 11:51 03/28/18 12:00 Temperature Pulse Rate 79 78 82 Respiratory Rate 16 16 Blood Pressure Blood Pressure [Left Arm] 160/64 H 129/71 129/71 Pulse Oximetry 97 96 98 03/28/18 12:30 03/28/18 13:00 03/28/18 13:21 Temperature Pulse Rate 76 75 85 Respiratory Rate 16 Blood Pressure 144/75 H Blood Pressure [Left Arm] 135/84 144/75 H Pulse Oximetry 99 03/28/18 13:37 03/28/18 13:50 Temperature 98.0 F Pulse Rate 78 76 Respiratory Rate 16 Blood Pressure 150/79 H Blood Pressure [Left Arm] 145/81 H Pulse Oximetry 97 96 Oxygen Delivery Method Room Air Oxygen Flow Rate 2 Narrative Exam Narrative: Very pleasant gentleman lying flat on his back in the bed. He does not appear to be in any significant distress. A a blood-tinged 4 x 4 as noted over his posterior scalp on the left side. HEENT: Closed laceration on the posterior surface of the parietal region of the skull. It has been addressed with clips and is not actively bleeding currently. Associated swelling and tenderness to palpation. Pupils are equal round reactive to light accommodation with anicteric sclera. He has no midface instability or evidence of midface trauma. No hemotympanum. Dental occlusion is normal per patient. Tenderness to palpation along the posterior surface of the neck-along the vertebral bodies posteriorly. Soft collar was replaced at this point. Lungs: Essentially clear bilaterally but a productive cough is noted. No chest wall bruising or crepitance is noted. Tenderness to palpation along the left posterior chest wall in the paraspinous region but not along the left anterior chest wall. No tenderness over the sternum. Heart: Regular rate and rhythm without audible murmur Abdomen: Soft, nontender, active bowel sounds. No incisions noted. No hernias appreciated. No tenderness elicited with pelvic rock. No abdominal wall or abdominal pelvic externally apparent hematomas. Extremities: 4 cm circular bruises noted just proximal to the ankle along the left leg. No other leg wounds or lesions are noted. Weakly palpable dorsalis pedis pulses bilaterally. Full range of motion bilateral upper extremities without notable edema. Strength is equal bilaterally on both upper and lower extremities and is 5/5. Back and spine: Again, tenderness to palpation over the cervical spine and tenderness at the thoraco abdominal junction over the spine posteriorly. No crepitance or palpable step-off. No obvious bruising is noted. Objective Labs Result Diagrams: 03/28/18 10:53 03/28/18 10:53 Labs: Laboratory Results - last 24 hr 03/28/18 03/28/18 03/28/18 10:53 10:53 10:53 WBC 13.8 H RBC 5.41 Hgb 17.0 Hct 49.6 MCV 91.7 MCH 31.4 MCHC 34.2 RDW 13.4 Plt Count 269 Neut % (Auto) 60.3 Lymph % (Auto) 24.9 L Glasscock % (Auto) 9.8 Eos % (Auto) 3.8 Baso % (Auto) 1.2 Neut # (Auto) 8300 H PT 12.4 INR 1.1 APTT 25 L Sodium 140 Potassium 3.6 Chloride 102 Carbon Dioxide 28 BUN 23 H Creatinine 0.80 Estimated GFR > 60.0 BUN/Creatinine Ratio 28.8 H Glucose 105 H Calcium 8.8 Blood Type Antibody Screen 03/28/18 10:53 WBC RBC Hgb Hct MCV MCH MCHC RDW Plt Count Neut % (Auto) Lymph % (Auto) Glasscock % (Auto) Eos % (Auto) Baso % (Auto) Neut # (Auto) PT INR APTT Sodium Potassium Chloride Carbon Dioxide BUN Creatinine Estimated GFR BUN/Creatinine Ratio Glucose Calcium Blood Type A Negative Antibody Screen Negative Assessment & Plan Plan: Assessment/Plan Narrative: Pleasant and generally healthy 53-year-old gentleman who sustained a fall from approximately 12-14 feet high. He believes he landed on a grassy area and describes his fall as tumbling. Witnessed loss of consciousness. Now alert and oriented to person place and time. CT scans of the head neck chest abdomen and pelvis reveals significant cervical spine arthritis and a possible compression fracture at L1. It is unknown if the compression fracture is old or new. The patient has pain at both of the sites is significant enough to raise concern for unrecognized ligamentous injury at the cervical region, specifically C4-5. Additionally, we need to document whether this compression fracture is old or new. I have been over the films personally and with the help of Dr. Nair, the radiologist. I have requested MRIs of the cervical and thoracolumbar spines. Until the studies are completed, patient will remain logroll only and in a soft collar. Quality VTE Deep Vein Thrombosis/Pulmonary Embolism Present on Admission: No
[2018-03-28] MEDS: HYDROMORPHONE PCA 6 MG/30 ML PCA.VIAL 2 MG IV (22:41)
[2018-03-28] MEDS: diazePAM 10 MG/2 ML SYRINGE 5 MG IV (23:40)
--- NOTE | 2018-03-29 | DI.RAD.S_ITS ---
PROCEDURE: XR ELBOW LT MIN 3V INDICATIONS: trauma TECHNIQUE: 3 views of the elbow were acquired. COMPARISON: None. FINDINGS: Bones: No fractures or dislocations. No suspicious bony lesions. Soft tissues: No elbow joint effusion. No suspicious soft tissue calcifications. IMPRESSION: No acute fractures are seen. No joint effusion. If there is focal tenderness, or other clinical concern for a fracture not seen on these images in this patient with a given history of trauma, please consider a dedicated CT or a short-term followup plain film series (in 1-2 weeks) for further evaluation. Dictated by: Cuauhtemoc Vasquez M.D. on 03/30/2018 at 8:38 Approved by: Cuauhtemoc Vasquez M.D. on 03/30/2018 at 8:39
[2018-03-29] MEDS: SODIUM CHLORIDE 0.9% 1,000 ML 125 ML IV ×3 (00:29→17:07)
[2018-03-29] MEDS: ONDANSETRON 4 MG/2 ML INJ IV (04:22)
[2018-03-29] MEDS: HYDROMORPHONE PCA 6 MG/30 ML PCA.VIAL IV (05:39)
[2018-03-29] MEDS: diazePAM 10 MG/2 ML SYRINGE 5 MG IV (05:43)
[2018-03-29 05:58] VITALS: BP 121/65; PULSE 95; RESP 16; TEMP 36.9; O2SAT 93
--- NOTE | 2018-03-29 06:36 | PC.NURSE ---
Has had a restless night as only able to get pain down to 6-8/10 with [employer]AF[employer] OFFICER. Receives more relief from valium. c/o nausea when log rolled and on left side at 20 degrees x 15min, med for nausea. Also c/o heartburn.
[2018-03-29 07:45] VITALS: BP 133/71; PULSE 80; RESP 17; TEMP 36.8; O2SAT 95
[2018-03-29 11:45] VITALS: BP 135/93; PULSE 87; RESP 17; TEMP 36.6; O2SAT 94
--- NOTE | 2018-03-29 11:58 | PM.CHAP ---
Good visit with patient. Many concerns re possible trransfer to [facility]. Prayer and reassurance.
[2018-03-29] MEDS: SCOPOLAMINE 1 PATCH TOP (12:14)
[2018-03-29] MEDS: DEXAMETHASONE 4 MG/ML VIAL IV ×2 (12:21→17:24)
[2018-03-29] MEDS: PANTOPRAZOLE 40 MG TABLET PO (12:23)
[2018-03-29] MEDS: diazePAM 5 MG TABLET PO ×2 (12:56→20:05)
--- NOTE | 2018-03-29 14:36 | CM.DANOTE ---
Discharge Planning/Care Management DCP: assessment: case received, EMR reviewed. Met now with pt, found lying in bed with cervical collar in place, eating a banana. Introduced self and role. Pt is a 53 year old male who was here with a crew. In process of this work he fell backwards off a roof, hit head on ground and lost consciousness. Admitted to care of General Surgery: Dr. Frederick. Payer: Dept of L&I. Also has [facility] Options. Dr. Frederick's H&P is available, her progress note from today is not yet documented. Case was discussed in Team Rounds and a transfer to [facility] was reported to be considered and pt's desire. (he lives in [place], [place]). Discussion with NACHO Amaro now reveals that Dr. Frederick did confer with the orthopedic team and discussed the recommendations with pt. Per Sondra, a clamshell brace is ordered and pt will continue to be bedrest/log roll only until this is in place. Pt reports this is his understanding also and that he understands he will not be transferred at this time to a higher level of care but will be in this hospital for about a week. It is unclear what the plan will be at that point. PT and OT will likely be involved when appropriate. Pt came up with the work team in a company vehicle. This team has now left. Noted scan of L&I form in EMR but other than a claim # [id number] there is no other information or signatures on the form. Pt says someone came in and went over paperwork and wrote in the information for him and left it all in the folder on his table. Review of this shows only the usual New Pt paperwork, consent to treat, etc. L&I form should have been completed in the ER setting and am unclear re the process after that. Have requested that YANCY Perez, who has experience in this area, look into the specifics to make sure that all has been processed correctly and that pt has his own copies if possible. CM Discharge Assessment Start: 03/29/18 14:34 Freq: Status: Active Protocol: Document 03/29/18 14:34 ITV (Rec: 03/29/18 14:36 ITV [id number]) Discharge Planning Assessment Advance Directives? No History Provided By Patient Medical Record Prior Living Arrangements House Independent with ADL's Yes Is patient alert and oriented? Yes Whiteboard Updated in Patient Room with Yes name and ext. # of [employer] Architect Review Status In Process Next Review Type Continued Stay Review
[2018-03-29] MEDS: OXYCODONE/ACETAMINOPHEN 5/325 TABLET 1 TAB PO (14:38)
[2018-03-29] MEDS: NICOTINE 14 PATCH 14 MG TOP (14:38)
[2018-03-29 15:10] VITALS: BP 139/79; PULSE 97; RESP 18; TEMP 36.3; O2SAT 93
[2018-03-29] MEDS: HYDROMORPHONE 2 MG INJ 1 MG IV (17:24)
--- NOTE | 2018-03-29 17:26 | PT.IPTN ---
Physical Therapy Treatment Note M2 PT-IP Current Condition Start: 03/29/18 16:59 Freq: NEEDED Status: Active Protocol: Document 03/29/18 17:00 [facility] (Rec: 03/29/18 17:01 [facility] [id number]) Physical Therapy Current Condition Precautions Brace Patient currently on bedrest until fit with TLSO clam shell brace. Measured his waist and hips, contacted Quynh at [facility] and faxed over the order.
--- NOTE | 2018-03-29 18:50 | PM.PN.1 ---
Subjective Date Patient Seen: 03/29/18 Time Patient Seen: 18:50 Interval history: The patient was seen this morning about 10 o'clock and again this afternoon about 6:00 p.m.. He is looking better today than admission. His hard collar is in place. He tolerated a protein shake for lunch. His pain is getting better with oral Percocet and he has Dilaudid for breakthrough pain. Having a little bit of tingling in his left hand but it has improved some over the day. Reports he gets a little nauseated with any movement. Exam Vital Signs (past 8 hours): - 03/29/18 11:45 03/29/18 15:10 Temperature 97.9 F 97.3 F L Pulse Rate 87 97 H Respiratory Rate 17 18 Blood Pressure 135/93 H 139/79 Pulse Oximetry 94 93 Oxygen Delivery Method Nasal Cannula Oxygen Flow Rate 0 Narrative Exam Narrative: Lungs: Clear bilaterally. Heart: Regular rate and rhythm. Abdomen: Soft, nontender, active bowel sounds. Some tenderness to palpation around the posterior aspect of the left ribcage. No crepitance on either side. Extremities: Bruising has developed over the left elbow. He is also complaining of some tenderness to palpation over the lateral aspect of the joint. Still has significant if not full range of motion. Strength is equal in both hands. Objective Labs Result Diagrams: 03/28/18 10:53 03/28/18 10:53 Assessment & Plan Plan: Assessment/Plan Narrative: 1. I have discussed the spine injuries with Orthopedic surgery. At afternoon rounds, the brace company was present to fit the patient for a TLSO brace. 2. I think he probably has a degree of post concussive syndrome and he took quite a blow to the head. His CT scan is normal so no treatment is required beyond supportive care. Scalp laceration is healing. 3. Left elbow pain-I have ordered a three view x-ray of the left elbow. 4. Encouraged patient to take oral nutrition and stressed the importance of calorie and protein intake in order to heal 5. Mobility will be determined by the orthopedic service. Patient actually lives in [address] and it may be more beneficial for him to find a physician there once he is fitted with a supportive brace. Quality VTE Deep Vein Thrombosis/Pulmonary Embolism Present on Admission: No
[2018-03-29 19:30] VITALS: BP 141/70; PULSE 91; RESP 18; TEMP 36.3; O2SAT 92
[2018-03-29] MEDS: DOCUSATE 250 MG CAPSULE PO (20:05)
[2018-03-29] MEDS: OXYCODONE/ACETAMINOPHEN 5/325 TABLET 2 TAB PO (20:05)
[2018-03-30] VITALS (7 sets, daily range): BP systolic 116–147; BP diastolic 64–102; PULSE 81–100; RESP 16–18; TEMP 36.2–36.9; O2SAT 93–95
[2018-03-30] MEDS: DEXAMETHASONE 4 MG/ML VIAL IV ×4 (00:15→17:33)
[2018-03-30] MEDS: HYDROMORPHONE 2 MG INJ 1 MG IV ×3 (00:20→09:16)
--- NOTE | 2018-03-30 00:45 | PM.CN ---
History of Present Illness Date Patient Seen: 03/29/18 Time Patient Seen: 14:45 Chief complaint: Mob Trauma Reason for consult: Lumbar spine fracture, neck pain Requesting provider: Kalina Frederick Narrative: This is a 53-year-old gentleman who fell from a height and injured both his back and his neck. He was admitted yesterday to the General surgery Trauma Service workup in the emergency room showed evidence of a L1 compression fracture. It was an industrial injury. He had continuing problems with significant neck pain today and an MRI scan of both his lumbar spine and his cervical spine were obtained today. His cervical spine MRI scan does show evidence of edema at C6-7. The patient does note significant neck pain and some pain radiating into his right upper extremity. He denies any problems with his bowel or bladder. He does think that he had a loss of consciousness at the scene and does note that he is having problems with nausea specially when he attempts to get up. He did not have a previous history of significant neck pain or shoulder pain on the right. He is right-hand dominant [facility] Medical History Hypertension (Acute) Surgical History No pertinent past surgical history (Acute) Social History household members: children Smoking Status: Current every day smoker alcohol intake: former Meds Home Medications Medication Instructions Recorded Confirmed Type No Known Home Medications 03/28/18 03/28/18 History Allergies Allergy/AdvReac Type Severity Reaction Status Date / Time No Known Drug Allergies Allergy Verified 03/28/18 11:14 Review of Systems Review of Systems Has listed above, some moderate rib pain on going back pain, significant neck pain all related to the industrial fall. Exam Vital Signs (past 8 hours): - 03/29/18 19:30 03/30/18 00:19 Temperature 97.4 F L 97.2 F L Pulse Rate 91 H 81 Respiratory Rate 18 18 Blood Pressure 141/70 H 118/75 Pulse Oximetry 92 93 Oxygen Delivery Method Nasal Cannula Oxygen Flow Rate 0 Narrative Exam Narrative: HEENT is benign, cervical collar is in place, he is tender to palpation at the cervical thoracic junction and lower cervical spine. There is no palpable deformity. Skins noted to be intact. Cor is regular rate and rhythm lungs are clear his chest wall is stable but painful along the inferior aspect of his ribs and posteriorly on his spine he is painful at the thoracolumbar junction. Pelvis is noted to be stable has good range of motion of bilateral upper extremities with no obvious deformity but he does note dysesthetic sensation into his right arm predominantly in an ulnar distribution. His motor strength is intact in bilateral lower extremities except for some mild weakness of hip flexors which resulted in increased low back pain. Sensations intact in bilateral lower extremities there is no beats of clonus and Barajas's test is negative bilaterally is no evidence of hyperreflexia in bilateral upper extremities. Objective Labs Result Diagrams: 03/28/18 10:53 03/28/18 10:53 Assessment & Plan Plan: Assessment/Plan Narrative: His lumbar spine x-rays show an L1 fracture compression fracture with some loss of vertebral height anteriorly. He is a young healthy active individual I have recommended a formal thoraco lumbosacral sacral orthotic with [facility] and I contacted and a [facility]. There have been concerns regarding getting him fitted through physical therapy I overhead paged physical therapy talk to 1 of the physical therapist and we put 2 calls into the hospital medicine director to help expedite the patient's care and getting a brace if it cannot be obtained through [facility]. He also has C6-7 evidence of ligamentous injury on his MRI scan, there is disc disorder at C5-6 and C6-7 there is not appear to be an acute herniation or any severe vertebral body deformity. I have recommended a hard collar with follow-up x-rays in a week probably through our office.
--- NOTE | 2018-03-30 00:53 | P.CONS_ITS ---
History of Present Illness Date Patient Seen: 03/29/18 Time Patient Seen: 14:45 Chief complaint: Mob Trauma Reason for consult: Lumbar spine fracture, neck pain Requesting provider: Kalina Frederick Narrative: This is a 53-year-old gentleman who fell from a height and injured both his back and his neck. He was admitted yesterday to the General surgery Trauma Service workup in the emergency room showed evidence of a L1 compression fracture. It was an industrial injury. He had continuing problems with significant neck pain today and an MRI scan of both his lumbar spine and his cervical spine were obtained today. His cervical spine MRI scan does show evidence of edema at C6-7. The patient does note significant neck pain and some pain radiating into his right upper extremity. He denies any problems with his bowel or bladder. He does think that he had a loss of consciousness at the scene and does note that he is having problems with nausea specially when he attempts to get up. He did not have a previous history of significant neck pain or shoulder pain on the right. He is right-hand dominant [facility] Medical History Hypertension (Acute) Surgical History No pertinent past surgical history (Acute) Social History household members: children Smoking Status: Current every day smoker alcohol intake: former Meds Home Medications Medication Instructions Recorded Confirmed Type No Known Home Medications 03/28/18 03/28/18 History Allergies Allergy/AdvReac Type Severity Reaction Status Date / Time No Known Drug Allergies Allergy Verified 03/28/18 11:14 Review of Systems Review of Systems Has listed above, some moderate rib pain on going back pain, significant neck pain all related to the industrial fall. Exam Vital Signs (past 8 hours): - 03/29/18 19:30 03/30/18 00:19 Temperature 97.4 F L 97.2 F L Pulse Rate 91 H 81 Respiratory Rate 18 18 Blood Pressure 141/70 H 118/75 Pulse Oximetry 92 93 Oxygen Delivery Method Nasal Cannula Oxygen Flow Rate 0 Narrative Exam Narrative: HEENT is benign, cervical collar is in place, he is tender to palpation at the cervical thoracic junction and lower cervical spine. There is no palpable deformity. Skins noted to be intact. Cor is regular rate and rhythm lungs are clear his chest wall is stable but painful along the inferior aspect of his ribs and posteriorly on his spine he is painful at the thoracolumbar junction. Pelvis is noted to be stable has good range of motion of bilateral upper extremities with no obvious deformity but he does note dysesthetic sensation into his right arm predominantly in an ulnar distribution. His motor strength is intact in bilateral lower extremities except for some mild weakness of hip flexors which resulted in increased low back pain. Sensations intact in bilateral lower extremities there is no beats of clonus and Barajas's test is negative bilaterally is no evidence of hyperreflexia in bilateral upper extremities. Objective Labs Result Diagrams: 03/28/18 10:53 03/28/18 10:53 Assessment & Plan Plan: Assessment/Plan Narrative: His lumbar spine x-rays show an L1 fracture compression fracture with some loss of vertebral height anteriorly. He is a young healthy active individual I have recommended a formal thoraco lumbosacral sacral orthotic with [facility] and I contacted and a [facility]. There have been concerns regarding getting him fitted through physical therapy I overhead paged physical therapy talk to 1 of the physical therapist and we put 2 calls into the information security director to help expedite the patient's care and getting a brace if it cannot be obtained through [facility]. He also has C6-7 evidence of ligamentous injury on his MRI scan, there is disc disorder at C5-6 and C6-7 there is not appear to be an acute herniation or any severe vertebral body deformity. I have recommended a hard collar with follow- up x-rays in a week probably through our office.
[2018-03-30] MEDS: OXYCODONE/ACETAMINOPHEN 5/325 TABLET 2 TAB PO ×6 (01:02→21:01)
[2018-03-30] MEDS: SODIUM CHLORIDE 0.9% 1,000 ML 125 ML IV ×2 (01:25→09:13)
[2018-03-30] MEDS: diazePAM 5 MG TABLET PO ×3 (03:37→17:34)
--- NOTE | 2018-03-30 05:21 | PC.NURSE ---
NOC Note: Pt reports pain at 8/10 during assessment, routine percocet given as well as PRN dilaudid x2 and valium x1, pain only down to 6/10 during one reassessment of medication. Pt has reported difficulty getting to sleep r/t the pain, pt finally went to sleep at approximately 0430. Pt has a non-productive cough and complains of muscle spasms across his back at times. Collar and brace in place, pt using the urinal to void. Denies dizziness.
[2018-03-30] MEDS: DOCUSATE 250 MG CAPSULE PO ×2 (09:15→21:01)
[2018-03-30] MEDS: NICOTINE 14 PATCH 14 MG TOP (09:21)
--- NOTE | 2018-03-30 09:34 | P.PN_ITS ---
Subjective Date Patient Seen: 03/30/18 Time Patient Seen: 09:33 Interval history: This is a 53-year-old gentleman who fell from a height and injured both his back and his neck. It was an industrial injury. Dr. Velasquez consulted on him yesterday. He has had continuing problems with significant neck pain and an MRI scan of both his lumbar spine and his cervical spine were obtained. His cervical spine MRI scan does show evidence of edema at C6-7. The patient does note significant neck pain and some pain radiating into his left upper extremity. X-rays of his left arm obtained demonstrating no abnormalities. He denies any problems with his bowel or bladder. He does think that he had a loss of consciousness at the scene. He is right-hand dominant. Pain well controlled today. Denies difficulty swallowing. He lives in [place] and would like to follow up with an infection prevention specialist close to his home. Exam Vital Signs (past 8 hours): - 03/30/18 04:09 Temperature 98.0 F Pulse Rate 84 Respiratory Rate 18 Blood Pressure 135/96 H Pulse Oximetry 93 Oxygen Delivery Method Nasal Cannula Oxygen Flow Rate 0 Narrative Exam Narrative: Patient sitting up in NAD. He is alert and oriented X3. Wearing hard neck collar. Wearing back brace. Bilateral upper extremities have 5/5 strength throughout. Barajas sign absent, and no clonus. No neurological changes when compared to Dr. Velasquez's exam. Sensation intact light touch throughout bilateral upper and lower extremities. Objective Labs Result Diagrams: 03/28/18 10:53 03/28/18 10:53 Assessment & Plan (1) Closed compression fracture of L1 lumbar vertebra: Qualifiers: Encounter type: initial encounter Fracture healing: Qualified Code(s) : S32.010A - Wedge compression fracture of first lumbar vertebra, initial encounter for closed fracture Current visit: Yes Status: Acute (2) Chest wall contusion: Qualifiers: Encounter type: initial encounter Laterality: left Qualified Code(s): S20.212A - Contusion of left front wall of thorax, initial encounter Current visit: Yes Status: Acute (3) Laceration of scalp: Qualifiers: Encounter type: initial encounter Qualified Code(s): S01.01XA - Laceration without foreign body of scalp, initial encounter Current visit: Yes Status: Acute (4) CHI (closed head injury): Qualifiers: Encounter type: initial encounter Qualified Code(s): S09.90XA - Unspecified injury of head, initial encounter Current visit: Yes Status: Acute (5) Fall: Qualifiers: Encounter type: initial encounter Qualified Code(s): W19.XXXA - Unspecified fall, initial encounter Current visit: Yes Status: Acute (6) Neck injury: Current visit: Yes Status: Acute Plan: Assessment/Plan Narrative: His lumbar spine x-rays show an L1 fracture compression fracture with some loss of vertebral height anteriorly, and he will wear back brace for activity, ok to remove for hygiene. He also has C6-7 evidence of ligamentous injury on his MRI scan, there is disc disorder at C5-6 and C6-7 there is not appear to be an acute herniation or any severe vertebral body deformity. He will wear a hard collar with follow-up x-rays in a week. He will need to be referred to an infection prevention specialist close to his home in [place] within a week. Quality VTE Deep Vein Thrombosis/Pulmonary Embolism Present on Admission: No
--- NOTE | 2018-03-30 10:05 | PC.NURSE ---
Day Shift- Report given to NACHO Weiner at 0930
[2018-03-30] MEDS: PANTOPRAZOLE 40 MG TABLET PO (10:58)
[2018-03-30] MEDS: SCOPOLAMINE 1 PATCH TOP (11:02)
--- NOTE | 2018-03-30 14:40 | PT.IIE ---
Current Diagnoses Laceration without foreign body of scalp, initial encounter (03/28/18) Unspecified injury of head, initial encounter (03/28/18) Unspecified injury of neck, initial encounter (03/28/18) Contusion of left front wall of thorax, initial encounter (03/28/18) Wedge compression fracture of first lumbar vertebra, initial encounter for closed fracture (03/28/18) Unspecified fall, initial encounter (03/28/18) Surgical History (Last Reviewed 03/30/18 @ 00:48 by Ivania Velasquez MD) No pertinent past surgical history (Acute) Medical History (Last Reviewed 03/30/18 @ 00:48 by Ivania Velasquez MD) Hypertension (Acute) Physical Therapy Inpatient Evaluation/Re-Eval M1 PT/OT-IP Prior Functional Status Start: 03/30/18 15:59 Freq: NEEDED Status: Active Protocol: Document 03/30/18 16:00 [facility] (Rec: 03/30/18 17:04 [facility] [id number]) Medical Review Prior Functional Status Medical History Reviewed Yes Communication Independent. Mobility and Gait Independent and did not use any devices. Activities of Daily Living and IADL's Independent. Prior Functional Level (Other details) Pt works for a [employer] . Social History Household Members children Living Arrangements House Number of Floors (Floors) Two Floors Number of Stairs To Enter/Railing? Pt states lives in 2 level house with 15 steps and bilateral rails 1/2 way up and then only on the right side afterwards to the top of the steps. Pt has two steps and no rails to enter his house. Home Environment Standard Height Toilet Walk in Shower Additional Social History Comment Pt lives with his son who is 18 years old and goes to school until 4pm for 2 days and other days for only 1 hour , however pt's son also has a legal department manager job. Pt states will be able to have someone be home with him most of the time if son not available. M2 PT-IP Current Condition Start: 03/29/18 16:59 Freq: NEEDED Status: Active Protocol: Document 03/30/18 14:40 AB (Rec: 03/30/18 17:15 AB [id number]) Physical Therapy Current Condition Current Condition Evaluation Date 03/30/18 Treatment Diagnosis L1 compression fx; C6C7 ligamentous injury; difficulty in walking Onset Date 03/28/18 Precautions Cervical Spine Precautions Rigid Collar No Heavy Lifting Log Roll Lumbar Precautions Log Roll No Twisting Limit Bending Lifting Restriction of 10 lbs Brace pt has rigid collar on upon eval with doctor's order of on at all times has TLSO brace and on at all times but can be off for hygiene care. M3 PT-IP Subjective Start: 03/29/18 16:59 Freq: NEEDED Status: Active Protocol: Document 03/30/18 14:40 AB (Rec: 03/30/18 17:15 AB [id number]) Subjective Physical Therapy Visit Type Type Initial Evaluation Visit Start Time 14:40 Visit Stop Time 15:16 Total Visit Minutes 36 Number of FIELD SERVICE TECHNICIAN Visits 0 Therapy Pain Assessment Pain When Pain Assessed At Rest Pain Present Pain Present Pain Reported Location Bilateral Lower Back Intensity 10 Scale Used Numeric (1 - 10) Posterior Neck Intensity 10 Scale Used Numeric (1 - 10) M4 PT-IP Mobility and Gait Start: 03/29/18 16:59 Freq: NEEDED Status: Active Protocol: Document 03/30/18 14:40 AB (Rec: 03/30/18 17:15 AB [id number]) PT-Bed Mobility Assessment Rolling Level of Assist Moderate Assistance Supine to Sit Supine to Sit Moderate Assistance Sit to Supine Sit to Supine Moderate Assistance Maximum Assistance PT-Transfer Assessment Sit to and From Stand Sit to and from Stand Moderate Assistance 2 Person Assistance Use of Upper Extremities Equipment Transfer Assistive Device Gait Belt Front Wheeled Walker Comments Mobility Comments pt required mod A x 2 for sit to stand with (+) LE shaking during standing requiring assist for steadiness and safety. pt tolerated ~ 4-5 min of standing. Completed marching in place mod A x 2 and took side steps towards HOB using FWW ~ 5 steps mod A x 2 and cues. Pt with c/o dizziness and nausea during mobility. BP monitored. BP: supine: 127/70 sitting on EOB after supine to sit: 147/ 78 sitting on EOB prior to standin/73; standing using FWW for support: 133/74 supine in bed after activity: 142/64 Gait Assessment Gait Gait Assistance Required: Moderate Assistance 2 Person Assist Able to Maintain Weight Bearing Status Yes During Gait Assistive Devices Assistive Device Gait Belt Front Wheeled Walker Orthotic/Prosthetic Devices or Brace: Yes Factors Limiting Gait Function Factors Limiting Gait Function Decreased Activity Tolerance Decreased Strength Limited Range of Motion Pain Poor Balance Comments Gait Comments pt took side steps towards the HOB ~ 5 steps mod A x 2 and cues using FWW. PT-Balance Assessment Sitting Balance and Reactions Static Sitting Balance Ability Good Dynamic Sitting Balance Ability Fair Standing Balance and Reactions Static Standing Balance Ability Poor Dynamic Standing Balance Ability Poor Device Used FWW M5 PT-IP Objective Assessments Start: 03/29/18 16:59 Freq: NEEDED Status: Active Protocol: Document 03/30/18 14:40 AB (Rec: 03/30/18 17:15 AB [id number]) Orientation Orientation/Cognition Level of Alertness Alert Orientation Name Place Situation Memory Description Short Term Impaired Comments with slight confusion; pt stated that he hasn't slept well and has difficulty recalling recent conversations Gross Range of Motion Lower Extremity ROM Assessment Within Functional Limits Strength Lower Extremity Strength Assessment Bilaterally Impaired Hip 3+/5 Knee 3+/5 Ankle 3+/5 Comments Strength Comments pt c/o pain limiting LE movement Sensation Assessment Sensation Gross Sensation WNL M6 PT-IP Treatment Start: 03/29/18 16:59 Freq: NEEDED Status: Active Protocol: Document 03/30/18 14:40 AB (Rec: 03/30/18 17:15 AB [id number]) Physical Therapy Treatment Education Education Provided Precautions Safety Equipment Issued Equipment Type and Company rigid collar and TLSO brace from [place] [id number] PT-IP Assessment and Plan Start: 03/29/18 16:59 Freq: NEEDED Status: Active Protocol: Document 03/30/18 14:40 AB (Rec: 03/30/18 17:15 AB [id number]) PT Summary Assessment and Plan Potential Rehabilitation Potential Fair Status of Condition at Evaluation Evolving Summary Impairments Pain ROM Strength Balance Coordination Cognition Bed Mobility Transfers Gait Activity Tolerance Assessment Summary pt requiring 2 person assist with mobility at this time and unable to tolerate much activity. pt will require SNF rehab at this time but depending progress with mobility. will require 24/7 assist at this time. Goals Bed Mobility Goal Standby Assistance Transfer Goal Standby Assistance Front Wheeled Walker Gait Goal Standby Assistance Front Wheel Walker Gait Distance 100 Other Goals up/down 2 steps without rails Days to Meet Goals 5 Frequency of Treatment Frequency Of Treatment Twice a Day Treatment Plan Physical Therapy Treatment Plan Bed Mobility Training Transfer Training Gait Training Therapeutic Exercise Balance Retraining Discharge Planning Hot or Cold Pack Neuromuscular Re-ed Coordination Retraining Manual Therapy Other Recommendations and Next Treatment ambulation Focus Recommendations To Nursing Amount of Assist Needed 2 Person Assist Discharge Recommendations PT Discharge Recommendations SNF Rehab Other Discharge Recommendations SNF vs home with 24/ assist and homehealth services Equipment Needed for Home Before FWW Discharge
--- NOTE | 2018-03-30 15:53 | CM.DPC ---
DCP: continued: was notified by NACHO Weiner this morning that Dr. Fisher had checked in briefly with pt and said he could likely go home today. Discussed case with her and barriers at this time for this plan: pt had just been fitted with the clamshell torso brace, his neck brace remained in place and he had not been cleared to work with PT/OT. Mode of transport to [place] was in question as well as what level of care he would need. Check in with pt. He reports he is hoping to be able to go right home to his apt with his 18 year old son to care for him. He is a good size and he is not working. I have other people who can help too I am sure I'm hoping I can get back to light duty work [employer] Pt as noted prior does have a new L&I claim. Discussed plan for OT/PT as pt does admit he has no idea how he will be when he tries to get up. Discussed ? of OT/PT orders with NACHO Weiner and ortho Julia. Julia gave orders for OT and PT to [facility]. Just spoke now with OT Steff. She and PT Anamaria did an initial co-treat. Pt as this point cannot safely stand. Steff notes he has some visual changes and memory changes that are new since his fall. She said he at this point is not interested in any type of rehab facility, only wishing when he is stable for same to get back home. Is unclear at this point if this will be realistic. NACHO Weinre did observe part of the therapy eval so is aware of the challenges. P: DCP team to continue to follow closely.
--- NOTE | 2018-03-30 17:04 | OT.IP.EVAL ---
Current Diagnoses Laceration without foreign body of scalp, initial encounter (03/28/18) Unspecified injury of head, initial encounter (03/28/18) Unspecified injury of neck, initial encounter (03/28/18) Contusion of left front wall of thorax, initial encounter (03/28/18) Wedge compression fracture of first lumbar vertebra, initial encounter for closed fracture (03/28/18) Unspecified fall, initial encounter (03/28/18) Past Medical History (Last Reviewed 03/30/18 @ 00:48 by Ivania Velasquez MD) Hypertension (Acute) Surgical History (Last Reviewed 03/30/18 @ 00:48 by Ivania Velasquez MD) No pertinent past surgical history (Acute) Occupational Therapy Inpatient Evaluation/Re-Eval M1 PT/OT-IP Prior Functional Status Start: 03/30/18 15:59 Freq: NEEDED Status: Active Protocol: Document 03/30/18 16:00 [facility] (Rec: 03/30/18 17:04 [facility] [id number]) Medical Review Prior Functional Status Medical History Reviewed Yes Communication Independent. Mobility and Gait Independent and did not use any devices. Activities of Daily Living and IADL's Independent. Prior Functional Level (Other details) Pt works for a [employer] . Social History Household Members children Living Arrangements House Number of Floors (Floors) Two Floors Number of Stairs To Enter/Railing? Pt states lives in 2 level house with 15 steps and bilateral rails 1/2 way up and then only on the right side afterwards to the top of the steps. Pt has two steps and no rails to enter his house. Home Environment Standard Height Toilet Walk in Shower Additional Social History Comment Pt lives with his son who is 18 years old and goes to school until 4pm for 2 days and other days for only 1 hour , however pt's son also has a parts room associate job. Pt states will be able to have someone be home with him most of the time if son not available. M2 OT-IP Current Condition Start: 03/30/18 15:59 Freq: Status: Active Protocol: Document 03/30/18 16:00 [facility] (Rec: 03/30/18 17:04 [facility] [id number]) Occupational Therapy Current Condition Current Condition Evaluation Date 03/30/18 Treatment Diagnosis Closed head injury, closed compression fx of L1, soft tissue edema C6-C7 Diagnosis Onset Date 03/28/18 Post Operative Precautions Cervical Spine Precautions Rigid Collar Lumbar Precautions Log Roll No Twisting Limit Bending Lifting Restriction of 10 lbs Abdominal Surgery Precautions Lifting Restrictions Other Precautions C-collar on at all times; may check for skin prn and lumber brace may come off for hygiene needs. M3 OT- IP Subjective and Pain Start: 03/30/18 15:59 Freq: Status: Active Protocol: Document 03/30/18 16:00 [facility] (Rec: 03/30/18 17:04 [facility] [id number]) OT- Subjective Occupational Therapy Visit Type Type Initial Evaluation Visit Start Time 14:35 Visit Stop Time 15:25 Total Visit Minutes 50 Occupational Therapy Visit Comments Patient/Caregiver Goals Pt insisting he would like to go home, however feeling concerned about his situation. OT Pain Assessment Pain When Pain Assessed At Rest Pain Present Pain Present Pain Reported Location Bilateral Lower Back Intensity 10 Scale Used Numeric (1 - 10) Description Shooting Throbbing With Movement Posterior Neck Intensity 10 Scale Used Numeric (1 - 10) Description Throbbing With Movement M4 OT- IP ADL's Start: 03/30/18 15:59 Freq: Status: Active Protocol: Document 03/30/18 16:00 [facility] (Rec: 03/30/18 17:04 [facility] [id number]) OT ADL-Grooming Comments OT Grooming Comments Pt able to wash his face after set up of wash cloth. OT ADL-Dressing General Eval Upper Body Dressing Ability Total Assistance Comments OT Dressing Comments Pt needing MAX A for all LB dressing needs and dependent for neck and lumbar brace at this time. OT ADL-Toileting Comments OT Toileting Comments Pt currently uses urinal while in bed. Pt would benefit from BSC at home as pt has standard and low toilets at home. OT ADL-Bathing Comments OT Bathing Comments Pt states has walk in shower with door and would benefit from shower chair if able to make it up the steps by the time he goes home, otherwise sponge bathing recommended as only has a half bath on the main level. M6 OT- IP Functional Cognition Start: 03/30/18 15:59 Freq: Status: Active Protocol: Document 03/30/18 16:00 [facility] (Rec: 03/30/18 17:04 [facility] [id number]) Cognitive Factors Limiting Selfcare Function Cognitive Ability Level of Alertness Alert Patient Orientation Name Age Birthday Month Date Year Day of Week Place Situation Attention Span Ability Capable of Focused Attention Capable of Sustained Attention Ability to Follow Commands Able to Follow One Step Commands Memory Description Short Term Impaired Safety Awareness Underestimates Need for Assistance Cognitive Comments Cognitive Assessment Comments Pt states since fall has had increased difficulty with short term memory and at times memory is spotty, able to recall certain times while other things unable to recall. OT- Vision and Hearing OT- Hearing Assessment OT- Hearing Assessment WFL OT- Vision Assessment Vision History Blurred Vision Visual Attentiveness WFL Occular Pursuits Impaired Horizontal Vision Assessment Comments Pt complaining of blurred vision when looking up quickly with his eyes or when after coming to sitting from supine. M7 OT- IP Mobility and Balance Start: 03/30/18 15:59 Freq: Status: Active Protocol: Document 03/30/18 16:00 [facility] (Rec: 03/30/18 17:04 [facility] [id number]) OT- Bed Mobility Assessment Rolling Type of Rolling Log Rolling Level of Assistance Moderate Assistance Supine to Sit Supine to Sit Assist Moderate Assistance Maximum Assistance 1 Person Assistance Sit to Supine Sit to Supine Assist Moderate Assistance Maximum Assistance 1 Person Assistance OT-Transfer Assessment Sit to and From Stand Sit to and from Stand Moderate Assistance 2 Person Assistance Technique Transfer Destination Bed Transfer Technique Stand Step Pivot Devices Transfer Assistive Devices Gait Belt Front Wheeled Walker Comments Mobility Comments Pt very shaky on his feet and heavy use of BUE on the FWW. Pt only able to take small side steps to the head of the bed with MODA x2 and FWW. While at the edge of bed and standing, pt complaining of being dizzy and nauseous. BP supine 127/70, sitting 147/78 and 116/73 and standing 133/74 and after sitting back down 142/64. PT able to readjust the lumbar brace while pt standing with OT assist with pt's balance and use of FWW. OT- Balance Assessment Sitting Balance and Reactions Static Sitting Balance Ability Normal Standing Balance and Reactions Static Standing Balance Ability Poor M8 OT- IP Objective Assessments Start: 03/30/18 15:59 Freq: Status: Active Protocol: Document 03/30/18 16:00 [facility] (Rec: 03/30/18 17:04 [facility] [id number]) OT Gross Range of Motion Upper Extremity Range of Motion Assessment Within Functional Limits ROM Impairments RUE mildly decreased at end range versus LUE. Pt states had a fall in 2012 and hit his right shoulder resulting in rotator cuff and bicep tendon injury. OT Strength Hand [employer] Leader Strength Hand Dominance Right Comments Strength Comments Left hand ship mate slight stronger than right as this time. OT- Coordination Assessment Upper Extremity Finger to Nose Test Right UE Impaired Comments Coordination Comments Increased time for diadochokinesis, and slightly off for right index finger to nose. OT-Muscle Tone Assessment Muscle Tone WNL Yes OT Sensation Assessment Comments Summary Comments Intact for light touch through his arms, and states both feelings from right to left arm about the same. M9 OT- IP Assessment and Plan Start: 03/30/18 15:59 Freq: Status: Active Protocol: Document 03/30/18 16:00 [facility] (Rec: 03/30/18 17:04 [facility] [id number]) OT Summary Assessment and Plan Potential Rehabilitation Potential Good Analytic Complexity at Evaluation Moderate Summary OT Impairments Pain Strength Progress Towards Goals Slow Progress due to Pain Slow Progress due to Medical Issues Assessment Summary Pt MOD complexity and main barriers are steps, pain, Goals Grooming Goal Standby Assistance Dressing Goal Moderate Assistance Toileting Goal Standby Assistance Bathing Goal Moderate Assistance Toilet Transfer Goal Standby Assistance Shower Transfer Goal Minimal Assistance Patient/Caregiver Education Goal Demonstrate Post-Op Precautions Caregiver Independent Assisting Patient Days to Meet Goals 7 Frequency of Treatment Frequency Of Treatment Once a Day Treatment Plan OT Treatment Plan ADL Training Functional Cognition Training Functional Mobility Patient/Family Education Discharge Planning Other Treatment Recommendations and Next Transfer to [facility], stand at sink Treatment Focus , practice AED for LB dressing . Discharge Recommendations OT Discharge Recommendations SNF Rehab Other Discharge Recommendations Pending medial stability and progress Home with 09/01 and home health. Home Equipment Needs FWW, WC, BSC, shower chair
--- NOTE | 2018-03-30 18:06 | SLP.IPNOTE ---
SMALL BUSINESS SALES REPRESENTATIVE present for swallow screen after request from OT, Steff, and RN, [place]. Patient present with cervical collar. Able to tolerate liquids and solids, but independently chooses soft, cold food, as it is easier for him to get down, per patient report. No difficulty tolerating thin liquid, via SMALL BUSINESS SALES REPRESENTATIVE observation. SMALL BUSINESS SALES REPRESENTATIVE educated patient on ordering food that is easy for him to get down. Patient verbalized that he is able to call the kitchen and do this. SMALL BUSINESS SALES REPRESENTATIVE briefly discussed high functioning cognitive ability and how it may be affected after a head injury. Patient stated that he has had some double vision, difficulty focusing his vision, difficulty with word finding and mild memory impairment since admission. SMALL BUSINESS SALES REPRESENTATIVE relayed this information to MD, who ordered cognitive evaluation. Full cognitive evaluation to be completed tomorrow. Screen complete.
[2018-03-30] MEDS: GUAIFENESIN/DM 200/20 MG/10 ML UDC PO (18:31)
--- NOTE | 2018-03-30 19:12 | PC.NURSE ---
Patient reported: difficulty swallowing, dizziness and blurry vision when standing, and occupational therapy reported that during assessment patient's right hand was uncoordinated when asked to touch his nose. Patient also reported some memory loss, especially regarding the incident when he fell off the roof. Dr. Fisher was made aware of these findings. Speech eval was ordered and this RN, the therapist, and Dr. Fisher discussed doing a cognitive eval tomorrow morning. Telemetry has been discontinued, SCD's applied, call light in reach. Patient has brushed his teeth. Both braces are on. BA active. Will continue to monitor.
--- NOTE | 2018-03-30 19:38 | PM.PN.1 ---
Subjective Date Patient Seen: 03/30/18 Time Patient Seen: 17:38 Interval history: Patient seen twice today. Earlier today he thought he wanted to go home. He had his brace on and his neck collar on. However he got up and was quite unsteady on his feet and decided that may not be the best plan. He felt he needed additional physical therapy. Exam Vital Signs (past 8 hours): - 03/30/18 12:00 03/30/18 16:40 Temperature 97.6 F 98.4 F Pulse Rate 93 H 85 Respiratory Rate 16 18 Blood Pressure 147/93 H 116/64 Pulse Oximetry 95 93 Oxygen Delivery Method Room Air Oxygen Flow Rate 0 Narrative Exam Narrative: Extraocular movements are intact face is symmetric. Speech rate and content are appropriate. Lungs are clear to auscultation without rales or rhonchi. Heart regular rate and rhythm without murmur gallop. Objective Imaging Elbow: Radiologist's impression: No evidence of for fracture. Labs Result Diagrams: 03/28/18 10:53 03/28/18 10:53 Assessment & Plan Plan: Assessment/Plan Narrative: Patient with ligamentous C-spine injury and compression fracture of the lumbar spine with concussion. Speech pathology asked to do a formal evaluation of his cognitive functioning. Bedside swallowing is unremarkable. Will re-evaluate in the morning. The patient is going to be sore no matter what. This may end up being far more complex given the logistics of the patient's home [place] [facility] and being hospitalized here Quality VTE Deep Vein Thrombosis/Pulmonary Embolism Present on Admission: No
[2018-03-30] MEDS: BENZOCAINE/MENTHOL 1 LOZ PKT 1 EACH PO (21:01)
[2018-03-30] MEDS: SODIUM CHLORIDE 0.9% FLUSH 10 ML IV (21:02)
[2018-03-31] MEDS: diazePAM 5 MG TABLET PO ×2 (00:01→05:32)
[2018-03-31] MEDS: DEXAMETHASONE 4 MG/ML VIAL IV ×3 (00:02→12:29)
[2018-03-31] MEDS: HYDROMORPHONE 1 MG INJ IV ×3 (00:16→06:05)
[2018-03-31] MEDS: BENZOCAINE/MENTHOL 1 LOZ PKT 1 EACH PO ×2 (00:58→06:30)
[2018-03-31] MEDS: OXYCODONE/ACETAMINOPHEN 5/325 TABLET 2 TAB PO ×3 (01:05→09:21)
[2018-03-31] MEDS: MORPHINE 4 MG/ML INJ IV (04:09)
[2018-03-31 04:10] VITALS: BP 136/76; PULSE 81; RESP 16; TEMP 36.6; O2SAT 94
[2018-03-31] MEDS: SODIUM CHLORIDE 0.9% FLUSH 10 ML IV ×3 (06:07→08:20)
[2018-03-31] MEDS: PANTOPRAZOLE 40 MG TABLET PO (06:07)
--- NOTE | 2018-03-31 07:26 | PC.NURSE ---
Pt had a lot of pain last night and requested IVP dilaudid. pt reports he only had 3 hrs of sleep since arriving here in . around 414 pt removed his brace and refused to put it back on. Pt reports he is allowed to remove it at night during sleep. call light in reach. bed alarm active. keept HOB <30 degrees. cervical collar on.
[2018-03-31 08:05] VITALS: BP 136/65; PULSE 81; RESP 22; TEMP 36.4; O2SAT 96
[2018-03-31] MEDS: DOCUSATE 250 MG CAPSULE PO (08:20)
[2018-03-31] MEDS: NICOTINE 14 PATCH 14 MG TOP (08:20)
--- NOTE | 2018-03-31 08:32 | PM.PN.1 ---
Subjective Date Patient Seen: 03/31/18 Time Patient Seen: 08:32 Interval history: The patient reports he is feeling a little better this morning. He reports intermittent numbness in the left left upper extremity with certain positions while lying down. He states he would like an ambulance for transport home. Exam Vital Signs (past 8 hours): - 03/31/18 04:10 Temperature 97.8 F Pulse Rate 81 Respiratory Rate 16 Blood Pressure 136/76 Pulse Oximetry 94 Oxygen Delivery Method Room Air Oxygen Flow Rate 0 Narrative Exam Narrative: On physical examination the patient is moving well in bed with good function of all 4 extremities. His cervical brace is in place. Light touch is subjectively intact in all 4 extremities and he can move all 4 extremities on my commands. Objective Labs Result Diagrams: 03/28/18 10:53 03/28/18 10:53 Assessment & Plan Plan: Assessment/Plan Narrative: The patient is status post fall sustaining a minimally displaced L1 compression fracture and his MRI of his neck shows posterior ligamentous edema at C5-6 and C6-7 with no obvious involvement of the anterior and middle column. He can be discharged with a hard cervical collar with close follow-up with a spine surgeon near his home in [place]. He would likely benefit from transport in the supine position, although his fractures should be stable enough for him to be transported in a seated position if necessary. As we are the consulting service, I will not complete discharge orders. Quality VTE Deep Vein Thrombosis/Pulmonary Embolism Present on Admission: No
--- NOTE | 2018-03-31 11:03 | PC.NURSE ---
day shift arrived on shift and pt set off bed alarm around 0800. pt was sitting on edge of bed. Looks on floor and states that there is a potato bug crawling around on the floor. Went over to look and there were no bugs, just spots on the floor. Explained to pt that there were no bugs, he got defensive and insisted there were bugs crawling and why couldn't i see them. Explained he just had a lot of medication for pain and that he seemed to be halucinating. Pt then told me that I was hallucinating because there was clearly a bug on the floor. he then went to bend over towards the floor at his waist and throw a straw on the floor to show me that the bugs would move around the straw. Reassured pt that there were no bugs in the room and he again became defensive insisting there were and why was I lying to him. Returned pt to bed and placed bed alarm in place for pt safety. MOLDER MACHINE TENDER went into the room shortly afterwards and he asked her about bugs as well. She explained again to pt that there were no bugs in the room, she reported that pt stated, oh i guess that other girl was right about them being spots. Pt requested scheduled percocet. This was provided to pt around 0915. Pt requested valium at that time as well, explained that he received it at 0530 and it was ordered q6 and wasn't available until 1130. Pt then asked for IV dilaudid shortly after, explained to pt that he was going to d/c today and we don't normally give IV meds prior to d/c. Also, explained that pt was hallucinating this AM and I did not feel comfortable giving pt additional IV meds. Pt requested to speak with supercharger repair supervisor, Billy notified and he spoke with pt. Recommended to call MD. Dr Fisher was located on the floor, spoke with him about pt's medication use and hesitation to provide pt with additional IV pain meds, MdD states he will look at chart and speak with pt. will continue to monitor.
--- NOTE | 2018-03-31 11:35 | PT.IPTN ---
Current Diagnoses Laceration without foreign body of scalp, initial encounter (03/28/18) Unspecified injury of head, initial encounter (03/28/18) Unspecified injury of neck, initial encounter (03/28/18) Contusion of left front wall of thorax, initial encounter (03/28/18) Wedge compression fracture of first lumbar vertebra, initial encounter for closed fracture (03/28/18) Unspecified fall, initial encounter (03/28/18) Physical Therapy Treatment Note M2 PT-IP Current Condition Start: 03/29/18 16:59 Freq: NEEDED Status: Active Protocol: Document 03/30/18 14:40 AB (Rec: 03/30/18 17:15 AB [id number]) Physical Therapy Current Condition Current Condition Evaluation Date 03/30/18 Treatment Diagnosis L1 compression fx; C6C7 ligamentous injury; difficulty in walking Onset Date 03/28/18 Precautions Cervical Spine Precautions Rigid Collar No Heavy Lifting Log Roll Lumbar Precautions Log Roll No Twisting Limit Bending Lifting Restriction of 10 lbs Brace pt has rigid collar on upon eval with doctor's order of on at all times has TLSO brace and on at all times but can be off for hygiene care. M3 PT-IP Subjective Start: 03/29/18 16:59 Freq: NEEDED Status: Active Protocol: Document 03/31/18 11:35 AB (Rec: 03/31/18 13:08 AB [id number]) Subjective Physical Therapy Visit Type Type Treatment Note Visit Start Time 11:35 Visit Stop Time 12:25 Total Visit Minutes 50 Number of DIRECTOR PATIENT Visits 0 Physical Therapy Visit Comments Patient Comments pt agreeable to do PT Patient Goals to go home Therapy Pain Assessment Pain When Pain Assessed At Rest Pain Present Pain Present Pain Reported Location Bilateral Lower Back Intensity 8 Scale Used Numeric (1 - 10) Pain Management Techniques Timing of Activity with Medications Posterior Neck Intensity 8 Scale Used Numeric (1 - 10) Pain Management Techniques Timing of Activity with Medications M4 PT-IP Mobility and Gait Start: 03/29/18 16:59 Freq: NEEDED Status: Active Protocol: Document 03/31/18 11:35 AB (Rec: 03/31/18 13:08 AB [id number]) PT-Bed Mobility Assessment Supine to Sit Supine to Sit Standby Assistance Sit to Supine Sit to Supine Standby Assistance Scooting Scooting to Edge of Bed Standby Assistance PT-Transfer Assessment Sit to and From Stand Sit to and from Stand Standby Assistance Equipment Transfer Assistive Device Gait Belt Front Wheeled Walker Orthotic/Prosthetic Devices or Brace: Yes Gait Assessment Gait Gait Assistance Required: Standby Assistance Contact Guard Assist Distance (Feet) 250 Able to Maintain Weight Bearing Status Yes During Gait Assistive Devices Assistive Device Gait Belt Front Wheeled Walker Orthotic/Prosthetic Devices or Brace: Yes Gait Deviations General Gait Pattern Decreased Stride Length Decreased Feet Clearance Factors Limiting Gait Function Factors Limiting Gait Function Decreased Activity Tolerance Pain Poor Balance Comments Gait Comments pt ambulated using FWW SBA and completed 250 ft. pt also ambulated without AD requiring CGA and cues for safety ~ 250ft but increase unsteadiness compared to using a FWW. Stair Climbing Assessment Evaluation Level of Assist On Stairs Standby Assistance 1 Person Assistance Devices Stair Climbing Assistive Devices Right Railing Technique/Endurance Stair Climbing Direction Ascend and Descend Stair Climbing Technique Step Over Step Number of Steps Climbed 3 Query Text: Stair Climbing Set # Repetitions (reps) 2 Comments Stair Climbing Comments pt initially completed up/down steps using bilateral rails requiring SBA and then completed again using R rail ascending requiring SBA and cues. M5 PT-IP Objective Assessments Start: 03/29/18 16:59 Freq: NEEDED Status: Active Protocol: Document 03/30/18 14:40 AB (Rec: 03/30/18 17:15 AB [id number]) Orientation Orientation/Cognition Level of Alertness Alert Orientation Name Place Situation Memory Description Short Term Impaired Comments with slight confusion; pt stated that he hasn't slept well and has difficulty recalling recent conversations Gross Range of Motion Lower Extremity ROM Assessment Within Functional Limits Strength Lower Extremity Strength Assessment Bilaterally Impaired Hip 3+/5 Knee 3+/5 Ankle 3+/5 Comments Strength Comments pt c/o pain limiting LE movement Sensation Assessment Sensation Gross Sensation WNL M6 PT-IP Treatment Start: 03/29/18 16:59 Freq: NEEDED Status: Active Protocol: Document 03/31/18 11:35 AB (Rec: 03/31/18 13:08 AB [id number]) Physical Therapy Treatment Education Education Provided Precautions Safety Equipment Issued Equipment Type and Company requested FWW order from manager rn case. pt is set to go home today and FWW from [facility] given to pt. pt signed paper. Other Treatments Other Treatment Performed Assisted pt with donning of back brace. stated that his son can assist him with it and that he knows how to put it on. M7 PT-IP Assessment and Plan Start: 03/29/18 16:59 Freq: NEEDED Status: Active Protocol: Document 03/31/18 11:35 AB (Rec: 03/31/18 13:08 AB [id number]) PT Summary Assessment and Plan Potential Rehabilitation Potential Good Summary Impairments Pain ROM Strength Balance Coordination Cognition Bed Mobility Transfers Gait Activity Tolerance Progress Towards Goals Progressing Toward Goals Assessment Summary pt doing better today requiring SBA to CGA with mobility. pt plans to go home today with son to assist him and have friends that will come in to assist him on days when son is not around. Goals Bed Mobility Goal Independent Transfer Goal Independent Front Wheeled Walker Gait Goal Independent Front Wheel Walker Gait Distance 300 Other Goals up/down 2 steps without rails Days to Meet Goals 5 Frequency of Treatment Frequency Of Treatment Twice a Day Treatment Plan Physical Therapy Treatment Plan Bed Mobility Training Transfer Training Gait Training Therapeutic Exercise Balance Retraining Discharge Planning Hot or Cold Pack Neuromuscular Re-ed Coordination Retraining Manual Therapy Other Recommendations and Next Treatment ambulation Focus Recommendations To Nursing Amount of Assist Needed 1 Person Assist Discharge Recommendations PT Discharge Recommendations Home with 09/01 Assist
[2018-03-31 12:13] VITALS: BP 141/83; PULSE 66; RESP 18; TEMP 36.9; O2SAT 93
--- NOTE | 2018-03-31 12:13 | CM.DPC ---
DCP Cont: Patient stated he is planning on discharging today. Ordered walker for patient. Confirmed with Dr. Rodriguez, who is here, that he would be writing discharge orders. Asked patient if he had transportation, and he stated that he does. P:Patient is to be discharged home today. Aura Felder RN/[employer] Developer
[2018-03-31] MEDS: fentaNYL 25 MCG/PATCH TOP (12:28)
--- NOTE | 2018-03-31 12:34 | ST.IPIE ---
Care Team Visit Care Team Role Provider Type Ivania Velasquez MD Other Providers Physician Specialty: Orthopedic Surgery Address: [address] [place] [address], [address] Email: [email or web address] Emergency Provider Physician Specialty: Emergency Medicine Address: [address] [place] [address], [id number] Email: Kalina Frederick MD Admit Provider Physician Attending Provider Other Providers Specialty: General Surgery Address: [address] [place] [address], [address] Email: [email or web address] Current Diagnoses Laceration without foreign body of scalp, initial encounter (03/28/18) Unspecified injury of head, initial encounter (03/28/18) Unspecified injury of neck, initial encounter (03/28/18) Contusion of left front wall of thorax, initial encounter (03/28/18) Wedge compression fracture of first lumbar vertebra, initial encounter for closed fracture (03/28/18) Unspecified fall, initial encounter (03/28/18) Past Medical History (Last Reviewed 03/30/18 @ 00:48 by Ivania Velasquez MD) Hypertension (Acute Medical) ST IP Initial Evaulation Report COURTESY BUS DRIVER Cognitive/Memory Evaluation Start: 03/31/18 12:19 Freq: Status: Active Protocol: Document 03/31/18 12:19 [facility] (Rec: 03/31/18 12:34 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 CT scans of the head, neck, chest, abdomen and pelvis regeal significatn cervical spine arthritis and a possible compression fracture at L1. Patient put in a soft collar to address injury at the cervical region, specifically C4-5. Due to L1 fracture, patient recommended to remain at a maximum of 30 degrees in elevation. Swallow screen performed on 03/30/18 due to reduced elevation and placement of cervical collar. Patient presented with no swallowing issues. At the time of the screen, he reported to COURTESY BUS DRIVER that he was having difficulty focusing his vision , difficulty with short term memory, difficulty with word finding. A cognitive evaluation was requested by COURTESY BUS DRIVER to assess for any cognitive impairment following head injury. Hearing Hearing Level Normal Vision Comments Patient stated mild double vision which resolved after a short time [place] Language Language(s) Spoken in the Home Thai Occupational Status Occupation Status Works in [employer] Oral Motor Examination Oral Motor Exam Completed No Subjective Subjective Patient awake and alert, lying in bed eager to go home. Stated that he had not been sleeping well, which likely was contributing to his difficulties with memory, attention and vision. He told COURTESY BUS DRIVER that when he woke up, he mistook a spot on the floor for a bug, but was adamant that he was not hallucinating. Agreed to participate in cognitive evaluation. - Informal Assessment Receptive Language Normal Yes Expressive Language Normal Yes Articulation Normal Yes Cognition Normal Yes - Cognition Orientation Skill Level WNL Attention Skill Level WNL Problem Solving/Reasoning/Judgment Skill Level WNL Divergent Naming Skill Level WNL Category Naming/Identification Skill Level WNL Sequencing Skill Level WNL - Memory Short Term Memory Skill Level WNL Immediate Recall Skill Level WNL Word Recall Skill Level WNL Story Recall Skill Level WNL Long-Term Memory Skill Level WNL - Findings Cognitive/Memory Impressions Administration of the SCCAN. Due to the patient's high functioning level and eagerness to go home, COURTESY BUS DRIVER administered most of the SCCAN , but not all of it. Areas tested: Oral Expression - Repetition/Recall (Score: WNL) ; Speech Comprehension (Score: WNL); Oral Expression (Score: WFL); Connected Speech& Problem Solving (Score: WNL); Visual Problem Solving (Score: WNL); Numeric Problem Solving (Score: WNL); Reading (Score: WNL); Delayed Recall (Score: WNL). Patient able to participate appropriately and demonstrated consistent attention throughout the evaluation. Television turned on with volume at a moderate level, and yet, patient did not demonstrate difficulty attending to COURTESY BUS DRIVER. At this time, patient does not present with any outstanding cognitive impairment secondary to head injury. Within normal limits. Recommendations Recommendations No follow up therapy needed by speech therapist. Patient educated in all areas of swallowing, speech/language/ cognition, and voice. Verbalized understanding. Recommended contacting PCP should any difficulties arise in the future. At this time, no dysphagia, no cognitive impairment noted. No further therapy needed. D/C patient. Total Time Full Evaluation Time 30
--- NOTE | 2018-03-31 13:00 | OT.IP.TRT ---
Current Diagnoses Laceration without foreign body of scalp, initial encounter (03/28/18) Unspecified injury of head, initial encounter (03/28/18) Unspecified injury of neck, initial encounter (03/28/18) Contusion of left front wall of thorax, initial encounter (03/28/18) Wedge compression fracture of first lumbar vertebra, initial encounter for closed fracture (03/28/18) Unspecified fall, initial encounter (03/28/18) Occupational Therapy Treatment Note M2 OT-IP Current Condition Start: 03/30/18 15:59 Freq: Status: Active Protocol: Document 03/30/18 16:00 [facility] (Rec: 03/30/18 17:04 [facility] [id number]) Occupational Therapy Current Condition Current Condition Evaluation Date 03/30/18 Treatment Diagnosis Closed head injury, closed compression fx of L1, soft tissue edema C6-C7 Diagnosis Onset Date 03/28/18 Post Operative Precautions Cervical Spine Precautions Rigid Collar Lumbar Precautions Log Roll No Twisting Limit Bending Lifting Restriction of 10 lbs Abdominal Surgery Precautions Lifting Restrictions Other Precautions C-collar on at all times; may check for skin prn and lumber brace may come off for hygiene needs. M3 OT- IP Subjective and Pain Start: 03/30/18 15:59 Freq: Status: Active Protocol: Document 03/31/18 12:48 [facility] (Rec: 03/31/18 13:00 [facility] [id number]) OT- Subjective Occupational Therapy Visit Type Type Treatment Note Visit Start Time 12:35 Visit Stop Time 12:45 Total Visit Minutes 10 Occupational Therapy Visit Comments Patient/Caregiver Goals Pt feels ready to go home. M4 OT- IP ADL's Start: 03/30/18 15:59 Freq: Status: Active Protocol: Document 03/31/18 12:48 [facility] (Rec: 03/31/18 13:00 [facility] [id number]) OT AHF-[id number] General Evaluation Self-Feeding Ability Independent OT ADL-Dressing Comments OT Dressing Comments Pt given AED for LB dressing and able to doff socks and sock aid recommended not to use at this time as it may put too much pressure on his neck , therefore pt agrees son to assist. OT ADL-Toileting Comments OT Toileting Comments Pt states will be fine at home and not wanting to practice use of toilet or shower and would rather do it at home. OT ADL-Bathing Comments OT Bathing Comments Pt will benefit from shower chair. M6 OT- IP Functional Cognition Start: 03/30/18 15:59 Freq: Status: Active Protocol: Document 03/31/18 12:48 [facility] (Rec: 03/31/18 13:00 [facility] [id number]) Cognitive Factors Limiting Selfcare Function Cognitive Ability Level of Alertness Alert Patient Orientation Name Age Birthday Month Date Year Day of Week Place Situation Attention Span Ability Capable of Focused Attention Capable of Sustained Attention Ability to Follow Commands Able to Follow Multi-Step Commands Memory Description No Deficits Noted Safety Awareness Underestimates Need for Assistance Cognitive Comments Cognitive Assessment Comments Pt saying thinking much better today. OT- Vision and Hearing OT- Vision Assessment Vision Assessment Comments Pt states blurred vision much improved and only had initially after first waking up. M9 OT- IP Assessment and Plan Start: 03/30/18 15:59 Freq: Status: Active Protocol: Document 03/31/18 12:48 [facility] (Rec: 03/31/18 13:00 [facility] [id number]) OT Summary Assessment and Plan Discharge Recommendations OT Discharge Recommendations Home with Assistance Home Equipment Needs FWW, BSC, shower chair
[2018-03-31] MEDS: OXYCODONE/ACETAMINOPHEN 5/325 TABLET 3 TAB PO (13:20)
--- NOTE | 2018-03-31 15:10 | PC.NURSE ---
discharge pt concerned about pain control for drive home since it will be at least 2 hrs. notified and he ordered additional pain meds which were given to the pt. D/c instructions provided to pt. notified of f/u apt at in [place]. PIV removed prior to d.c. Pt left with all his belongings including FWW. Pt left in w/c with RN escort to friends car
--- NOTE | 2018-03-31 15:18 | PM.DS.1 ---
History of Present Illness Date Patient Seen: 03/31/18 Time Patient Seen: 12:18 Chief complaint: Mob Trauma Narrative: Patient is a gentleman admitted after a fall from a ladder. He apparently was working and according to a co-worker who was watching the catch on the ladder gave way that was holding it against the roof and the patient fell onto concrete. He had a period of loss of consciousness. Discharge Providers Date of admission: 03/28/18 12:16 Consults: 03/28/18 11:51 Consult to General Surgery Routine Comment: Consulting Provider: Kalina Frederick Reason for consultation: Admission Has provider been notified: Yes 03/29/18 09:45 Consult to Orthopedic Surgery Routine Comment: Consulting Provider: Ivania Velasquez Reason for consultation: Neck and back injuries resulting from fall Has provider been notified: Yes 03/30/18 11:31 Consult to Occupational Therapy Evaluate & Treat Comment: Physician Instructions: Evaluate and treat Consult to Physical Therapy Evaluate & Treat Comment: Physician Instructions: Evaluate and Treat 03/30/18 17:42 Consult to Speech Therapy Evaluate & Treat Comment: cognative evaluation Physician Instructions: Evaluate and treat 03/31/18 11:41 Consult to Physical Therapy Evaluate & Treat Comment: Physician Instructions: Evaluate and Treat.Front wheel walker for home use Discharge provider: Dusty Fisher MD Discharge Date: 03/31/18 Summary Discharge Diagnosis: Acute Compression fracture of L1. Ligamentous injury acute to C6-C7 . chronic disc disease in the cervical and lumbar spine areas. Multiple areas in the lumbar spine with impingement on nerve roots. Chronic cigarette use Acute concussion from fall Hospital Course: The patient was admitted and evaluated bite with orthopedic service. He was felt to have no unstable fractures and not in need of any surgical intervention at this time. They recommended a back brace and a cervical collar. His pain was controlled mostly with narcotic use. He was ultimately discharged on a general diet to follow up in [place] near to where he lives. Those appointments were made for this coming Monday in the [facility]. He was discharged on multiple medications to control his pain. No follow-up here is planned as [place]. Status at Discharge Cognitive/behavioral status at discharge: Cognition normal at discharge Functional status at discharge: uses cane/walker Time Spent with Patient Greater than 30 minutes Time spent discussing smoking cessation with patient: 3 to 10 minutes Exam Vital Signs (past 8 hours): - 03/31/18 08:05 03/31/18 12:13 Temperature 97.5 F L 98.4 F Pulse Rate 81 66 Respiratory Rate 22 18 Blood Pressure 136/65 141/83 H Pulse Oximetry 96 93 Oxygen Delivery Method Room Air Oxygen Flow Rate 0 Narrative Exam Narrative: Eyes are nonicteric. Pupils equal round reactive to light. Extraocular movements are intact. Hearing grossly normal. Uvula elevates in the midline face is symmetric. Coat Cutter strength equal bilaterally. Superintendent Greens flexion-extension of the feet and at the elbow were all 2+ and normal. He had difficulty raising his legs due to back pain. Strength appeared to be normal however. He was alert and orient x3. Speech rate and content were appropriate. His lungs are clear to auscultation without rales or rhonchi. Heart regular rate and rhythm without murmur gallop. Abdomen is scaphoid soft nontender without mass or hernia. Liver and spleen are not enlarged. Objective Labs Result Diagrams: 03/28/18 10:53 03/28/18 10:53 Labs: Patient had extensive x-rays performed which included a CT of the C-spine chest and abdomen, an MRI of the cervical and lumbar spine, plain films of the chest and pelvis and elbow. Findings summarized as having a nondisplaced fracture of the lumbar spine chronic degenerative changes in the neck and lumbar area, acute ligamentous injury at C6-C7 suspected. Numerous areas of disc disease noted on the x-ray reports. Discharge Plan Discharge Plan Patient Disposition: Home Discharge comment: An appointment has been made at [facility] spine clinic for MondayAPR 04 check in at 10:00 am. Address is [place] [address]. If you need information or need to change the appointment call [phone]. The building has its own parking garage. Check in and the clinic are on the 2nd floor. MAKE SURE TO BRING YOUR [employer] claim number or they will list you as self pay. Your xrays were sent to [facility]. Discharge Med Rec/Prescriptions Prescriptions: New nicotine 21 mg/24 hr patch 24 hour 1 patch Transdermal DAILY Qty: 14 RF: 0 fentanyl 25 mcg/hr patch 72 hour 1 patch Transdermal Q72H Qty: 5 RF: 0 miscellaneous medical supply Misc Qty: 1 RF: 0 cyclobenzaprine 10 mg tablet 10 mg PO TID PRN (Reason: muscle spasm) Qty: 30 RF: 0 ibuprofen 600 mg tablet 600 mg PO TID PRN (Reason: pain) Qty: 30 RF: 1 oxycodone 5 mg tablet See Label Instructions .ROUTE .COMPLEX PRN (Reason: pain) Qty: 60 RF: 0 gabapentin 300 mg capsule 300 mg PO BID Qty: 30 RF: 0 Provider Discharge Instructions Diet: Diet as Tolerated Activity: limit activity. Walk. Await instructions from physical therapy/spine clinic at [facility]. Do not drive until mobile and pain free OFF medication. Cold/Heat Therapy: use either if they make you feel better. Do not put ice directly against skin. Do not use heating pad due to risk of burn if you fall asleep on it. Skin/Wound/Dressing Care Dressing: You should have your steven removed from your scalp in about 7-10 days. You should ask the [facility] surgeons to do this. Visit Report/Discharge Packet Instructions: Vertebral Compression Fracture, DI for Vertebral Fracture Visit Report Forms: Stroke Signs & Symptoms Discharge Data Attending Provider: Kalina Frederick Admit Date/Time: 03/28/18 12:16 Quality VTE Deep Vein Thrombosis/Pulmonary Embolism Present on Admission: No
--- NOTE | 2018-03-31 15:27 | P.DS_ITS ---
History of Present Illness Date Patient Seen: 03/31/18 Time Patient Seen: 12:18 Chief complaint: Mob Trauma Narrative: Patient is a gentleman admitted after a fall from a ladder. He apparently was working and according to a co-worker who was watching the catch on the ladder gave way that was holding it against the roof and the patient fell onto concrete. He had a period of loss of consciousness. Discharge Providers Date of admission: 03/28/18 12:16 Consults: 03/28/18 11:51 Consult to General Surgery Routine Comment: Consulting Provider: Kalina Frederick Reason for consultation: Admission Has provider been notified: Yes 03/29/18 09:45 Consult to Orthopedic Surgery Routine Comment: Consulting Provider: Ivania Velasquez Reason for consultation: Neck and back injuries resulting from fall Has provider been notified: Yes 03/30/18 11:31 Consult to Occupational Therapy Evaluate & Treat Comment: Physician Instructions: Evaluate and treat Consult to Physical Therapy Evaluate & Treat Comment: Physician Instructions: Evaluate and Treat 03/30/18 17:42 Consult to Speech Therapy Evaluate & Treat Comment: cognative evaluation Physician Instructions: Evaluate and treat 03/31/18 11:41 Consult to Physical Therapy Evaluate & Treat Comment: Physician Instructions: Evaluate and Treat.Front wheel walker for home use Discharge provider: Dusty Fisher MD Discharge Date: 03/31/18 Summary Discharge Diagnosis: Acute Compression fracture of L1. Ligamentous injury acute to C6-C7 . chronic disc disease in the cervical and lumbar spine areas. Multiple areas in the lumbar spine with impingement on nerve roots. Chronic cigarette use Acute concussion from fall Hospital Course: The patient was admitted and evaluated bite with orthopedic service. He was felt to have no unstable fractures and not in need of any surgical intervention at this time. They recommended a back brace and a cervical collar. His pain was controlled mostly with narcotic use. He was ultimately discharged on a general diet to follow up in [place] near to where he lives. Those appointments were made for this coming Monday in the [facility]. He was discharged on multiple medications to control his pain. No follow-up here is planned as [place]. Status at Discharge Cognitive/behavioral status at discharge: Cognition normal at discharge Functional status at discharge: uses cane/walker Time Spent with Patient Greater than 30 minutes Time spent discussing smoking cessation with patient: 3 to 10 minutes Exam Vital Signs (past 8 hours): - 03/31/18 08:05 03/31/18 12:13 Temperature 97.5 F L 98.4 F Pulse Rate 81 66 Respiratory Rate 22 18 Blood Pressure 136/65 141/83 H Pulse Oximetry 96 93 Oxygen Delivery Method Room Air Oxygen Flow Rate 0 Narrative Exam Narrative: Eyes are nonicteric. Pupils equal round reactive to light. Extraocular movements are intact. Hearing grossly normal. Uvula elevates in the midline face is symmetric. Imaging Analyst strength equal bilaterally. Machine Deicer Element Winder flexion-extension of the feet and at the elbow were all 2+ and normal. He had difficulty raising his legs due to back pain. Strength appeared to be normal however. He was alert and orient x3. Speech rate and content were appropriate. His lungs are clear to auscultation without rales or rhonchi. Heart regular rate and rhythm without murmur gallop. Abdomen is scaphoid soft nontender without mass or hernia. Liver and spleen are not enlarged. Objective Labs Result Diagrams: 03/28/18 10:53 03/28/18 10:53 Labs: Patient had extensive x-rays performed which included a CT of the C-spine chest and abdomen, an MRI of the cervical and lumbar spine, plain films of the chest and pelvis and elbow. Findings summarized as having a nondisplaced fracture of the lumbar spine chronic degenerative changes in the neck and lumbar area, acute ligamentous injury at C6-C7 suspected. Numerous areas of disc disease noted on the x-ray reports. Discharge Plan Discharge Plan Patient Disposition: Home Discharge comment: An appointment has been made at [facility] spine clinic for MondayAPR 04 check in at 10:00 am. Address is [place] [address]. If you need information or need to change the appointment call [phone]. The building has its own parking garage. Check in and the clinic are on the 2nd floor. MAKE SURE TO BRING YOUR [employer] claim number or they will list you as self pay. Your xrays were sent to [facility]. Discharge Med Rec/Prescriptions Prescriptions: New nicotine 21 mg/24 hr patch 24 hour 1 patch Transdermal DAILY Qty: 14 RF: 0 fentanyl 25 mcg/hr patch 72 hour 1 patch Transdermal Q72H Qty: 5 RF: 0 miscellaneous medical supply Misc Qty: 1 RF: 0 cyclobenzaprine 10 mg tablet 10 mg PO TID PRN (Reason: muscle spasm) Qty: 30 RF: 0 ibuprofen 600 mg tablet 600 mg PO TID PRN (Reason: pain) Qty: 30 RF: 1 oxycodone 5 mg tablet See Label Instructions .ROUTE .COMPLEX PRN (Reason: pain) Qty: 60 RF: 0 gabapentin 300 mg capsule 300 mg PO BID Qty: 30 RF: 0 Provider Discharge Instructions Diet: Diet as Tolerated Activity: limit activity. Walk. Await instructions from physical therapy/ spine clinic at [facility]. Do not drive until mobile and pain free OFF medication. Cold/Heat Therapy: use either if they make you feel better. Do not put ice directly against skin. Do not use heating pad due to risk of burn if you fall asleep on it. Skin/Wound/Dressing Care Dressing: You should have your steven removed from your scalp in about 7-10 days. You should ask the [facility] surgeons to do this. Visit Report/Discharge Packet Instructions: Vertebral Compression Fracture, DI for Vertebral Fracture Visit Report Forms: Stroke Signs & Symptoms Discharge Data Attending Provider: Kalina Frederick Admit Date/Time: 03/28/18 12:16 Quality VTE Deep Vein Thrombosis/Pulmonary Embolism Present on Admission: No
== END 2018-03-31 14:30 | disposition home or self-care (01) | DRG 347 ==
LOC: ED 12:04 → AC 12:17
PROVIDERS: Admitting Provider Surgery; Emergency Provider Emergency Medicine; Visit Provider Surgery
DX: S32.010A Wedge compression fracture of first lumbar vertebra, initial encounter for closed fracture (principal); S06.0X1A Concussion with loss of consciousness of 30 minutes or less, initial encounter; S13.4XXA Sprain of ligaments of cervical spine, initial encounter; M25.522 Pain in left elbow; F17.210 Nicotine dependence, cigarettes, uncomplicated; S01.01XA Laceration without foreign body of scalp, initial encounter; M50.922 Unspecified cervical disc disorder at C5-C6 level; M50.923 Unspecified cervical disc disorder at C6-C7 level; S20.212A Contusion of left front wall of thorax, initial encounter; W11.XXXA Fall on and from ladder, initial encounter; M25.80 Other specified joint disorders, unspecified joint
CPT/HCPCS: 12002; 12004; 70450; 71045; 71260; 72125; 72141; 72148; 72170; 73080; 74177; 80048; 85025; 85610; 85730; 86850; 86900; 86901; 94760; 96125; 96361; 96374; 96375; 96376; 97116; 97162; 97166; 97530; 99222; 99231; 99238; 99285; 99406; 90715; J1100; J1170; J2270; J2405; J3360; Q9967